=== PATIENT | female | born 2000 | race Caucasian/White ===

== ENCOUNTER 2018-03-02 20:38 | Emergency (ER) | payer OTHER ==
[~2018-03-02] VITALS: Ht 172.7 cm; Wt 77.1 kg
[2018-03-02 23:09] LABS: BUN/Creatinine Ratio 14.8; Calcium 7.7 mg/dL (8.5-10.1)
[2018-03-02 23:11] LABS: Bilirubin, Total 0.4 mg/dL (0.2-1.0); Total Protein 6.6 g/dL (6.4-8.2)
[2018-03-02 23:12] LABS: Urine Bacteria FEW /hpf (None Seen); Urine Blood Negative /uL (Negative); Urine Specific Gravity 1.011 (1.001-1.035); Urine WBC 3 /hpf (0 - 5)
[2018-03-02 23:13] LABS: Basophils # (auto) 0 uL; Basophils % (auto) 0.4 % (0.0-2.0); Eosinophils # (auto) 0 uL; Eosinophils % (auto) 0.3 % (0.0-7.0); Hematocrit 39.7 % (36.0-46.0); Hemoglobin 13.3 g/dL (12.2-16.2); Lymphocytes # (auto) 1.4 uL; Lymphocytes % (auto) 21.9 % (10.0-50.0); Mean Corpuscular Hemoglobin 28.9 pg (28.0-32.0); Mean Corpuscular Hgb Conc. 33.5 g/dL (32.0-36.0); Mean Corpuscular Volume 86.2 fL (80.0-100.0); Monocytes # (auto) 0.7 uL; Monocytes % (auto) 10.6 % (0.0-12.0); Neutrophils # (auto) 4.4 uL; Neutrophils % (auto) 66.8 % (37.0-80.0); Nucleated Red Blood Cells % 0.1 %; Platelet Count (auto) 250 10^3/uL (140-450); Red Cell Distribution Width 13.8 % (11.8-14.3); White Blood Cell 6.6 10^3/uL (4.4-10.8)
[2018-03-03] MEDS ORDERED: cefTRIAXone 1GM/10ml IVPUSH 10 ML IV ONE (00:45)
[2018-03-03] MEDS ORDERED: SODIUM CHLORIDE 0.9% 1,000 ML IV ONE (00:45)
[2018-03-03] MEDS ORDERED: ACETAMINOPHEN 500 MG TAB PO ONE (01:30)
[2018-03-03 03:25] VITALS: BP 108/80
== END 2018-03-03 03:29 | disposition home or self-care (01) ==
LOC: EDBD 20:38 → ER 20:38
DX: E10.10 Type 1 diabetes mellitus with ketoacidosis without coma (principal); E78.5 Hyperlipidemia, unspecified; Z88.1 Allergy status to other antibiotic agents; Z88.8 Allergy status to other drugs, medicaments and biological substances
CPT/HCPCS: 36415; 71045; 80053; 81001; 82010; 82962; 85025; 96361; 96374; 99285; J7030

== ENCOUNTER 2020-10-25 06:19 | Inpatient (IN) | payer OTHER, BC ==
[~2020-10-25] VITALS: Ht 172.7 cm; Wt 94.6 kg
[2020-10-25] MEDS ORDERED: SODIUM CHLORIDE 0.9% 1,000 ML IV ONE (07:30)
[2020-10-25] MEDS ORDERED: SODIUM CHLORIDE 0.9% 2,000 ML IV ONE (08:00)
[2020-10-25] MEDS ORDERED: SODIUM BICARBONATE 8.4 % INJ 50ML VIAL IV ONE ×3 (08:00→22:00)
[2020-10-25] MEDS ORDERED: DEXTROSE (50%) 50ML SYRG IV PRN ×2 (08:00→12:45)
[2020-10-25 08:21] LABS: Hematocrit 47.6 % (36.0-46.0); Hemoglobin 13.9 g/dL (12.2-16.2); Mean Corpuscular Hemoglobin 29.2 pg (28.0-32.0); Mean Corpuscular Hgb Conc. 29.2 g/dL (32.0-36.0); Mean Corpuscular Volume 99.9 fL (80.0-100.0); Red Blood Cells 4.76 10^6/uL (4.0-5.20); Red Cell Distribution Width 15.5 % (11.8-14.3); White Blood Cell 27.1 10^3/uL (4.4-10.8)
[2020-10-25 08:25] LABS: Basophils % (manual) 0 (0.0-2.0); Blast Cells 0; Eosinophils % (manual) 0 (0-7); Metamyelocytes % 0; Promyelocytes % 0; Reactive Lymphocytes 0
[2020-10-25] MEDS ORDERED: InsuLIN REG 1unit/0.01ml Soln (100units/ml) IV ONE (08:30)
[2020-10-25 08:32] LABS: Albumin 3.2 g/dL (3.4-5.0); Potassium 5.1 mmol/L (3.5-5.1)
[2020-10-25 08:34] LABS: Bilirubin, Total 0.4 mg/dL (0.2-1.0)
[2020-10-25 08:55] LABS: Urine Amorphous Crystal FEW /hpf (None Seen); Urine Bacteria NONE SEEN /hpf (None Seen); Urine Blood Negative /uL (Negative); Urine Specific Gravity 1.018 (1.001-1.035); Urine WBC 1 /hpf (0 - 5)
[2020-10-25] MEDS: InsuLIN R (HUMAN) 100 UNITS in SODIUM CHL 0.9% 99 ML IV SCH (09:02)
[2020-10-25] MEDS: ACCU-CHEK COMFORT CURVE STRIP VI SCH ×10 (09:03→22:32)
[2020-10-25 09:09] LABS: BUN/Creatinine Ratio 11.7
[2020-10-25] MEDS: SODIUM CHLORIDE 0.9% 1,000 ML IV SCH ×4 (09:20→14:49)
[2020-10-25 10:12] LABS: Phosphorus 5.4 mg/dL (2.5-4.90)
[2020-10-25] MEDS ORDERED: cefTRIAXone 1GM/50ML D5W 50 ML IV ONE (10:45)
[2020-10-25] MEDS: POTASSIUM CHLORIDE 20 MEQ in D5W 5% 1,000 ML IV SCH (10:52)
[2020-10-25] MEDS ORDERED: SUCCINYLCHOLINE CHLORIDE 20 MG/ML 10ML VIAL IV ONE ×2 (11:24→11:30)
[2020-10-25] MEDS ORDERED: ETOMIDATE (2MG/ML) 20ML VIAL IV ONE ×2 (11:24→11:30)
[2020-10-25] MEDS ORDERED: MIDAZOLAM DRIP 50 mg/50mL 50 ML IV ONE (11:25)
[2020-10-25 11:37] LABS: Band Neutrophils % (manual) 7; Lymphocytes % (manual) 20 (10.0-50.0); Monocytes % (manual) 5 (0-12); Myelocytes % 3
[2020-10-25] MEDS: MIDAZOLAM DRIP 50 mg/50mL 50 ML IV SCH (11:37)
[2020-10-25] MEDS: PROPOFOL 100 ML IV SCH (11:51)
[2020-10-25] MEDS ORDERED: INSULIN LANTUS (GLARGINE) 1 /0.01ml (100units/ml) SC ONE (12:45)
[2020-10-25] MEDS ORDERED: SODIUM CHLORIDE 0.9% 1,000 ML IV SCH ×4 (13:00→18:45)
[2020-10-25 13:08] LABS: Amylase 28 U/L (25-115); Lipase 134 U/L (73-393)
[2020-10-25] MEDS: FAMOTIDINE (10MG/ML) 2ML VL IV SCH (13:24)
[2020-10-25] MEDS ORDERED: NITROGLYCERIN 0.4 MG SL TAB SL PRN (14:00)
[2020-10-25] MEDS ORDERED: MORPHINE SULFATE INJECTION 2 MG/ML SYRG IV PRN (14:00)
[2020-10-25 14:44] VITALS: BP 151/92
[2020-10-25 14:45] LABS: Alcohol, Urine < 3.0 mg/dL (0-10); Amphetamine Screen, Urine NEGATIVE (NEGATIVE); Barbiturate Scree,Urine NEGATIVE (NEGATIVE); Benzodiazephine Screen, Urine NEGATIVE (NEGATIVE); Cannabinoid Screen, Urine NEGATIVE (NEGATIVE); Cocaine Screen, Urine NEGATIVE (NEGATIVE); Opiate Scree,Urine NEGATIVE (NEGATIVE); Phencyclidine Screen, Urine NEGATIVE (NEGATIVE)
[2020-10-25 15:26] LABS: Calcium 6.8 mg/dL (8.5-10.1)
[2020-10-25 16:31] LABS: Potassium 5.6 mmol/L (3.5-5.1)
[2020-10-25 18:30] VITALS: BP 138/72
[2020-10-25] MEDS ORDERED: ACETAMINOPHEN 650 mg PER 20.3 mL UD GT ONE (18:30)
[2020-10-25] MEDS ORDERED: FUROSEMIDE 40 MG/4 ML VIAL IV ONE (19:00)
[2020-10-25 19:12] LABS: BUN/Creatinine Ratio 9.4; Calcium 6.9 mg/dL (8.5-10.1); Potassium 4.4 mmol/L (3.5-5.1)
[2020-10-25] MEDS: SODIUM BICARB 50ML SYR 50 ML in SODIUM CHLORIDE 0.9% 1,000 ML IV SCH (19:44)
[2020-10-25] MEDS ORDERED: LACTATED RINGER'S 1,000 ML IV ONE (21:00)
[2020-10-25] MEDS ORDERED: SODIUM BICARBONATE 8.4% INJ 50ML SYRINGE ONE (21:50)
[2020-10-25 22:08] VITALS: BP 137/80
[2020-10-26] MEDS: ACCU-CHEK COMFORT CURVE STRIP VI SCH ×14 (00:17→20:16)
[2020-10-26] MEDS: InsuLIN R (HUMAN) 100 UNITS in SODIUM CHL 0.9% 99 ML IV SCH ×3 (00:17→04:00)
[2020-10-26] MEDS: FAMOTIDINE (10MG/ML) 2ML VL IV SCH ×2 (00:17→13:22)
[2020-10-26 01:16] LABS: Calcium 7.5 mg/dL (8.5-10.1); Potassium 3.5 mmol/L (3.5-5.1)
[2020-10-26 01:23] LABS: BUN/Creatinine Ratio 7.8
[2020-10-26 03:17] VITALS: BP 158/96
[2020-10-26] MEDS ORDERED: ACETAMINOPHEN 650 mg PER 20.3 mL UD GT ONE (04:00)
[2020-10-26] MEDS ORDERED: SODIUM BICARBONATE 8.4% INJ 50ML SYRINGE ONE (05:24)
[2020-10-26] MEDS: SODIUM BICARB 50ML SYR 50 ML in SODIUM CHLORIDE 0.9% 1,000 ML IV SCH ×2 (05:31→16:28)
[2020-10-26 06:00] VITALS: BP 146/81
[2020-10-26] MEDS: POTASSIUM CHLORIDE 20 MEQ in D5W 5% 1,000 ML IV SCH (06:04)
[2020-10-26 06:29] LABS: Basophils # (auto) 0 10 ^3/uL (0-0.2); Basophils % (auto) 0.2 % (0.0-2.0); Eosinophils # (auto) 0 10 ^3/uL (0-0.8); Eosinophils % (auto) 0.1 % (0.0-7.0); Hematocrit 35.6 % (36.0-46.0); Hemoglobin 11.7 g/dL (12.2-16.2); Lymphocytes # (auto) 1.1 10 ^3/uL (0.4-5.4); Lymphocytes % (auto) 8.6 % (10.0-50.0); Mean Corpuscular Hemoglobin 29.6 pg (28.0-32.0); Mean Corpuscular Hgb Conc. 32.8 g/dL (32.0-36.0); Monocytes # (auto) 1.2 10 ^3/uL (0-1.3); Monocytes % (auto) 9.7 % (0.0-12.0); Neutrophils # (auto) 10.3 10 ^3/uL (1.6-8.6); Neutrophils % (auto) 81.4 % (37.0-80.0); Nucleated Red Blood Cells % 0.2 %; Red Blood Cells 3.96 10^6/uL (4.0-5.20); Red Cell Distribution Width 14.2 % (11.8-14.3); White Blood Cell 12.7 10^3/uL (4.4-10.8)
[2020-10-26 06:53] LABS: Potassium 3.3 mmol/L (3.5-5.1)
[2020-10-26 07:00] LABS: Albumin 2.3 g/dL (3.4-5.0); BUN/Creatinine Ratio 5.6; Bilirubin, Total 0.3 mg/dL (0.2-1.0); Calcium 7.5 mg/dL (8.5-10.1); Total Protein 6.2 g/dL (6.4-8.2)
[2020-10-26] MEDS: cefTRIAXone 1GM/50ML D5W 50 ML IV SCH (08:40)
[2020-10-26] MEDS ORDERED: INSULIN LANTUS (GLARGINE) 1 /0.01ml (100units/ml) SC SCH (10:00)
[2020-10-26] MEDS: MIDAZOLAM DRIP 50 mg/50mL 50 ML IV SCH (11:30)
[2020-10-26] MEDS: PROPOFOL 100 ML IV SCH ×3 (12:00→13:35)
[2020-10-26] MEDS: LABETALOL HCL 5 MG/ML 4ML SYRINGE IV PRN (14:41)
[2020-10-26] MEDS ORDERED: SODIUM BICARBONATE 8.4 % INJ 50ML VIAL IV ONE (15:18)
[2020-10-26 18:38] LABS: BUN/Creatinine Ratio 5.5; Calcium 7.6 mg/dL (8.5-10.1)
[2020-10-26 18:57] LABS: Potassium 2.8 mmol/L (3.5-5.1)
[2020-10-26 19:00] VITALS: BP 133/83
[2020-10-26] MEDS: LACTATED RINGER'S 1,000 ML IV SCH (19:30)
[2020-10-26] MEDS ORDERED: DEXTROSE (50%) 50ML SYRG IV PRN (19:30)
[2020-10-26] MEDS: POTASSIUM CHL 20MEQ/100ML 100 ML IV SCH ×3 (19:30→23:30)
[2020-10-26] MEDS: InsuLIN REG 1unit/0.01ml Soln (100units/ml) SC SCH (20:00)
[2020-10-26] MEDS: ACETAMINOPHEN 650 mg PER 20.3 mL UD GT PRN (21:30)
[2020-10-27] VITALS (9 sets, daily range): BP systolic 115–169; BP diastolic 75–110
[2020-10-27] MEDS: FAMOTIDINE (10MG/ML) 2ML VL IV SCH ×2 (01:11→15:00)
[2020-10-27] MEDS: SODIUM BICARB 50ML SYR 50 ML in SODIUM CHLORIDE 0.9% 1,000 ML IV SCH ×3 (01:50→15:00)
[2020-10-27] MEDS: ACETAMINOPHEN 650 mg PER 20.3 mL UD GT PRN ×2 (03:35→20:08)
[2020-10-27] MEDS: ACCU-CHEK COMFORT CURVE STRIP VI SCH ×5 (03:36→19:43)
[2020-10-27] MEDS: LACTATED RINGER'S 1,000 ML IV SCH ×3 (03:36→19:44)
[2020-10-27] MEDS: InsuLIN REG 1unit/0.01ml Soln (100units/ml) SC SCH ×5 (03:53→20:20)
[2020-10-27] MEDS ORDERED: SODIUM BICARBONATE 8.4% INJ 50ML SYRINGE ONE (03:56)
[2020-10-27] MEDS: PROPOFOL 100 ML IV SCH (06:00)
[2020-10-27] MEDS ORDERED: INSULIN LANTUS (GLARGINE) 1 /0.01ml (100units/ml) SC SCH (09:30)
[2020-10-27] MEDS: cefTRIAXone 1GM/50ML D5W 50 ML IV SCH (09:36)
[2020-10-27 11:25] LABS: Basophils # (auto) 0 10 ^3/uL (0-0.2); Basophils % (auto) 0.3 % (0.0-2.0); Eosinophils # (auto) 0 10 ^3/uL (0-0.8); Eosinophils % (auto) 0.5 % (0.0-7.0); Hematocrit 31.5 % (36.0-46.0); Hemoglobin 10.7 g/dL (12.2-16.2); Lymphocytes # (auto) 1.6 10 ^3/uL (0.4-5.4); Lymphocytes % (auto) 19.7 % (10.0-50.0); Mean Corpuscular Hemoglobin 30.7 pg (28.0-32.0); Mean Corpuscular Hgb Conc. 34.1 g/dL (32.0-36.0); Mean Corpuscular Volume 89.8 fL (80.0-100.0); Monocytes # (auto) 0.7 10 ^3/uL (0-1.3); Monocytes % (auto) 9.3 % (0.0-12.0); Neutrophils # (auto) 5.6 10 ^3/uL (1.6-8.6); Neutrophils % (auto) 70.2 % (37.0-80.0); Nucleated Red Blood Cells % 0.1 %; Red Cell Distribution Width 14.7 % (11.8-14.3)
[2020-10-27] MEDS: MIDAZOLAM DRIP 50 mg/50mL 50 ML IV SCH (11:30)
[2020-10-27 11:36] LABS: Calcium 7.9 mg/dL (8.5-10.1)
[2020-10-27 11:39] LABS: BUN/Creatinine Ratio 5.5; Bilirubin, Total 0.2 mg/dL (0.2-1.0); Total Protein 5.8 g/dL (6.4-8.2)
[2020-10-27 11:58] LABS: Potassium 2.8 mmol/L (3.5-5.1)
[2020-10-27 12:51] LABS: Calcium 7.9 mg/dL (8.5-10.1)
[2020-10-27 12:55] LABS: BUN/Creatinine Ratio 5.3; Bilirubin, Total 0.2 mg/dL (0.2-1.0)
[2020-10-27] MEDS ORDERED: DEXTROSE (50%) 50ML SYRG IV PRN (13:45)
[2020-10-27] MEDS: INSULIN LANTUS (GLARGINE) 1 /0.01ml (100units/ml) SC SCH (15:17)
[2020-10-27] MEDS ORDERED: POTASSIUM EFFERVESENT TAB 25 MEQ GT ONE (19:15)
[2020-10-28] VITALS (74 sets, daily range): BP systolic 140–215; BP diastolic 49–113
[2020-10-28] MEDS: ACCU-CHEK COMFORT CURVE STRIP VI SCH ×6 (00:06→20:00)
[2020-10-28] MEDS: InsuLIN REG 1unit/0.01ml Soln (100units/ml) SC SCH ×6 (00:14→20:00)
[2020-10-28] MEDS: FAMOTIDINE (10MG/ML) 2ML VL IV SCH ×3 (01:00→23:14)
[2020-10-28] MEDS: PROPOFOL 100 ML IV SCH ×2 (01:47→23:15)
[2020-10-28] MEDS ORDERED: SODIUM BICARBONATE 8.4% INJ 50ML SYRINGE ONE ×2 (02:18→02:23)
[2020-10-28] MEDS: LABETALOL HCL 5 MG/ML 4ML SYRINGE IV PRN (02:30)
[2020-10-28] MEDS: LACTATED RINGER'S 1,000 ML IV SCH ×3 (02:55→19:30)
[2020-10-28 04:36] LABS: Potassium 3.6 mmol/L (3.5-5.1)
[2020-10-28 04:44] LABS: Albumin 1.7 g/dL (3.4-5.0); BUN/Creatinine Ratio 6.3; Bilirubin, Total 0.4 mg/dL (0.2-1.0); Calcium 8.2 mg/dL (8.5-10.1); Total Protein 5.7 g/dL (6.4-8.2)
[2020-10-28] MEDS: MORPHINE SULFATE INJECTION 2 MG/ML SYRG IV PRN (06:32)
[2020-10-28 06:46] LABS: Basophils # (auto) 0.1 10 ^3/uL (0-0.2); Nucleated Red Blood Cells % 0.1 %
[2020-10-28 06:50] LABS: Basophils % (auto) 0.7 % (0.0-2.0); Eosinophils # (auto) 0.2 10 ^3/uL (0-0.8); Eosinophils % (auto) 1.9 % (0.0-7.0); Hematocrit 34.2 % (36.0-46.0); Lymphocytes % (auto) 23.3 % (10.0-50.0); Mean Corpuscular Hgb Conc. 32.1 g/dL (32.0-36.0); Mean Corpuscular Volume 93.5 fL (80.0-100.0); Monocytes # (auto) 0.8 10 ^3/uL (0-1.3); Monocytes % (auto) 9.6 % (0.0-12.0); Neutrophils # (auto) 5.6 10 ^3/uL (1.6-8.6); Neutrophils % (auto) 64.5 % (37.0-80.0); Red Blood Cells 3.66 10^6/uL (4.0-5.20); Red Cell Distribution Width 15.4 % (11.8-14.3); White Blood Cell 8.7 10^3/uL (4.4-10.8)
[2020-10-28] MEDS: INSULIN LANTUS (GLARGINE) 1 /0.01ml (100units/ml) SC SCH (09:27)
[2020-10-28] MEDS: cefTRIAXone 1GM/50ML D5W 50 ML IV SCH (09:27)
[2020-10-28] MEDS: hydrALAZINE HCL 20 MG/ML VL IV PRN ×2 (10:22→14:33)
[2020-10-28] MEDS: MIDAZOLAM DRIP 50 mg/50mL 50 ML IV SCH (11:30)
[2020-10-28] MEDS: SODIUM BICARB 50ML SYR 50 ML in SODIUM CHLORIDE 0.9% 1,000 ML IV SCH ×2 (12:44→23:13)
[2020-10-28] MEDS: ACETAMINOPHEN 650 mg PER 20.3 mL UD GT PRN (23:16)
[2020-10-29] VITALS (72 sets, daily range): BP systolic 112–172; BP diastolic 55–108
[2020-10-29] MEDS: InsuLIN REG 1unit/0.01ml Soln (100units/ml) SC SCH ×7 (00:08→23:53)
[2020-10-29] MEDS: ACCU-CHEK COMFORT CURVE STRIP VI SCH ×7 (00:14→23:53)
[2020-10-29] MEDS: PROPOFOL 100 ML IV SCH ×6 (02:28→23:28)
[2020-10-29] MEDS: LACTATED RINGER'S 1,000 ML IV SCH ×3 (03:30→21:40)
[2020-10-29 03:51] LABS: Basophils # (auto) 0 10 ^3/uL (0-0.2); Basophils % (auto) 0.5 % (0.0-2.0); Eosinophils # (auto) 0.3 10 ^3/uL (0-0.8); Eosinophils % (auto) 3.4 % (0.0-7.0); Hematocrit 33.1 % (36.0-46.0); Hemoglobin 10.8 g/dL (12.2-16.2); Lymphocytes # (auto) 1.6 10 ^3/uL (0.4-5.4); Lymphocytes % (auto) 17.2 % (10.0-50.0); Mean Corpuscular Hemoglobin 29.4 pg (28.0-32.0); Mean Corpuscular Hgb Conc. 32.6 g/dL (32.0-36.0); Mean Corpuscular Volume 90.1 fL (80.0-100.0); Monocytes # (auto) 0.9 10 ^3/uL (0-1.3); Monocytes % (auto) 10.4 % (0.0-12.0); Neutrophils # (auto) 6.2 10 ^3/uL (1.6-8.6); Neutrophils % (auto) 68.5 % (37.0-80.0); Red Blood Cells 3.67 10^6/uL (4.0-5.20); Red Cell Distribution Width 14.4 % (11.8-14.3)
[2020-10-29 04:11] LABS: Albumin 1.6 g/dL (3.4-5.0)
[2020-10-29 04:15] LABS: BUN/Creatinine Ratio 7.8; Bilirubin, Total 0.2 mg/dL (0.2-1.0); Total Protein 5.3 g/dL (6.4-8.2)
[2020-10-29] MEDS: cefTRIAXone 1GM/50ML D5W 50 ML IV SCH (08:51)
[2020-10-29] MEDS: SODIUM BICARB 50ML SYR 50 ML in SODIUM CHLORIDE 0.9% 1,000 ML IV SCH ×2 (08:51→17:45)
[2020-10-29] MEDS: INSULIN LANTUS (GLARGINE) 1 /0.01ml (100units/ml) SC SCH (09:02)
[2020-10-29] MEDS: MIDAZOLAM DRIP 50 mg/50mL 50 ML IV SCH (11:30)
[2020-10-29] MEDS: FAMOTIDINE (10MG/ML) 2ML VL IV SCH (12:16)
[2020-10-29] MEDS ORDERED: POTASSIUM CHLORIDE 40 MEQ, LIDOCAINE 1% (LOCAL ANESTH.) 4 ML in SODIUM CHL 0.9% 250 ML IV ONE (15:00)
[2020-10-29] MEDS: hydrALAZINE HCL 20 MG/ML VL IV PRN (15:43)
[2020-10-29] MEDS: ENALAPRILAT 1.25 MG/ML-1ML VIAL IV SCH ×2 (18:16→23:51)
[2020-10-29] MEDS: ACETAMINOPHEN 650 mg PER 20.3 mL UD GT PRN (21:43)
[2020-10-29] MEDS: MORPHINE SULFATE INJECTION 2 MG/ML SYRG IV PRN (21:45)
[2020-10-30] VITALS (86 sets, daily range): BP systolic 118–166; BP diastolic 57–102
[2020-10-30] MEDS: FAMOTIDINE (10MG/ML) 2ML VL IV SCH ×2 (00:45→12:21)
[2020-10-30 03:29] LABS: Basophils # (auto) 0 10 ^3/uL (0-0.2); Basophils % (auto) 0.3 % (0.0-2.0); Eosinophils # (auto) 0.3 10 ^3/uL (0-0.8); Eosinophils % (auto) 3.5 % (0.0-7.0); Hematocrit 33.7 % (36.0-46.0); Hemoglobin 11.3 g/dL (12.2-16.2); Lymphocytes # (auto) 1.5 10 ^3/uL (0.4-5.4); Lymphocytes % (auto) 18.4 % (10.0-50.0); Mean Corpuscular Hemoglobin 29.9 pg (28.0-32.0); Mean Corpuscular Hgb Conc. 33.6 g/dL (32.0-36.0); Mean Corpuscular Volume 88.8 fL (80.0-100.0); Monocytes % (auto) 12.4 % (0.0-12.0); Neutrophils # (auto) 5.5 10 ^3/uL (1.6-8.6); Neutrophils % (auto) 65.4 % (37.0-80.0); Nucleated Red Blood Cells % 0.1 %; Red Blood Cells 3.79 10^6/uL (4.0-5.20); Red Cell Distribution Width 14.4 % (11.8-14.3); White Blood Cell 8.4 10^3/uL (4.4-10.8)
[2020-10-30 03:48] LABS: Potassium 3.2 mmol/L (3.5-5.1)
[2020-10-30 03:55] LABS: Albumin 1.6 g/dL (3.4-5.0); BUN/Creatinine Ratio 10.1; Bilirubin, Total 0.2 mg/dL (0.2-1.0); Calcium 7.7 mg/dL (8.5-10.1); Total Protein 5.8 g/dL (6.4-8.2)
[2020-10-30] MEDS: PROPOFOL 100 ML IV SCH (04:13)
[2020-10-30] MEDS: InsuLIN REG 1unit/0.01ml Soln (100units/ml) SC SCH ×5 (04:15→20:30)
[2020-10-30] MEDS: ACCU-CHEK COMFORT CURVE STRIP VI SCH ×5 (04:16→20:19)
[2020-10-30] MEDS: SODIUM BICARB 50ML SYR 50 ML in SODIUM CHLORIDE 0.9% 1,000 ML IV SCH ×2 (04:18→14:45)
[2020-10-30] MEDS: ENALAPRILAT 1.25 MG/ML-1ML VIAL IV SCH ×3 (06:00→16:05)
[2020-10-30] MEDS: hydrALAZINE HCL 20 MG/ML VL IV PRN (06:44)
[2020-10-30] MEDS: LACTATED RINGER'S 1,000 ML IV SCH ×3 (08:45→20:15)
[2020-10-30] MEDS: cefTRIAXone 1GM/50ML D5W 50 ML IV SCH (08:48)
[2020-10-30] MEDS: INSULIN LANTUS (GLARGINE) 1 /0.01ml (100units/ml) SC SCH (10:04)
[2020-10-30] MEDS: MIDAZOLAM DRIP 50 mg/50mL 50 ML IV SCH (11:30)
[2020-10-30] MEDS ORDERED: POTASSIUM CHLORIDE 40 MEQ, LIDOCAINE 1% (LOCAL ANESTH.) 4 ML in SODIUM CHL 0.9% 250 ML IV ONE (14:15)
[2020-10-31] VITALS (98 sets, daily range): BP systolic 122–176; BP diastolic 67–109
[2020-10-31] MEDS: ACCU-CHEK COMFORT CURVE STRIP VI SCH ×7 (00:22→23:56)
[2020-10-31] MEDS: InsuLIN REG 1unit/0.01ml Soln (100units/ml) SC SCH ×7 (00:24→23:56)
[2020-10-31] MEDS: FAMOTIDINE (10MG/ML) 2ML VL IV SCH ×2 (00:32→13:48)
[2020-10-31] MEDS: LACTATED RINGER'S 1,000 ML IV SCH ×3 (04:39→23:41)
[2020-10-31] MEDS: ENALAPRILAT 1.25 MG/ML-1ML VIAL IV SCH ×3 (07:00→11:26)
[2020-10-31] MEDS: SODIUM BICARB 50ML SYR 50 ML in SODIUM CHLORIDE 0.9% 1,000 ML IV SCH ×3 (07:38→21:53)
[2020-10-31] MEDS: PROPOFOL 100 ML IV SCH ×7 (08:00→23:47)
[2020-10-31] MEDS: cefTRIAXone 1GM/50ML D5W 50 ML IV SCH (08:44)
[2020-10-31] MEDS: INSULIN LANTUS (GLARGINE) 1 /0.01ml (100units/ml) SC SCH (10:00)
[2020-10-31] MEDS: MIDAZOLAM DRIP 50 mg/50mL 50 ML IV SCH ×3 (11:13→23:48)
[2020-10-31] MEDS: hydrALAZINE HCL 20 MG/ML VL IV PRN (17:43)
[2020-10-31 21:56] LABS: Basophils # (auto) 0 10 ^3/uL (0-0.2); Basophils % (auto) 0.3 % (0.0-2.0); Eosinophils # (auto) 0.6 10 ^3/uL (0-0.8); Eosinophils % (auto) 7.3 % (0.0-7.0); Hematocrit 27.6 % (36.0-46.0); Hemoglobin 9.6 g/dL (12.2-16.2); Lymphocytes # (auto) 1.5 10 ^3/uL (0.4-5.4); Lymphocytes % (auto) 16.6 % (10.0-50.0); Mean Corpuscular Hemoglobin 30.9 pg (28.0-32.0); Mean Corpuscular Hgb Conc. 34.9 g/dL (32.0-36.0); Mean Corpuscular Volume 88.6 fL (80.0-100.0); Monocytes # (auto) 0.9 10 ^3/uL (0-1.3); Monocytes % (auto) 10.3 % (0.0-12.0); Neutrophils # (auto) 5.8 10 ^3/uL (1.6-8.6); Neutrophils % (auto) 65.5 % (37.0-80.0); Red Blood Cells 3.12 10^6/uL (4.0-5.20); White Blood Cell 8.9 10^3/uL (4.4-10.8)
[2020-10-31 22:19] LABS: Albumin 1.3 g/dL (3.4-5.0); Calcium 7.8 mg/dL (8.5-10.1)
[2020-10-31 22:23] LABS: BUN/Creatinine Ratio 10.9; Bilirubin, Total 0.2 mg/dL (0.2-1.0)
[2020-10-31 22:26] LABS: Potassium 2.8 mmol/L (3.5-5.1)
[2020-11-01] VITALS (79 sets, daily range): BP systolic 127–176; BP diastolic 73–104
[2020-11-01] MEDS: FAMOTIDINE (10MG/ML) 2ML VL IV SCH ×2 (00:52→13:47)
[2020-11-01] MEDS ORDERED: POTASSIUM CHL 20MEQ/100ML 200 ML IV ONE (00:58)
[2020-11-01] MEDS: POTASSIUM CHL 20MEQ/100ML 100 ML IV SCH ×3 (01:00→04:54)
[2020-11-01] MEDS ORDERED: POTASSIUM CHL 20MEQ/100ML 100 ML IV ONE (03:12)
[2020-11-01] MEDS: InsuLIN REG 1unit/0.01ml Soln (100units/ml) SC SCH ×5 (04:00→21:05)
[2020-11-01] MEDS: ACCU-CHEK COMFORT CURVE STRIP VI SCH ×5 (04:19→20:06)
[2020-11-01] MEDS: MIDAZOLAM DRIP 50 mg/50mL 50 ML IV SCH ×2 (04:20→16:20)
[2020-11-01] MEDS: PROPOFOL 100 ML IV SCH ×6 (04:20→17:45)
[2020-11-01] MEDS: LACTATED RINGER'S 1,000 ML IV SCH ×2 (08:22→11:51)
[2020-11-01] MEDS: SODIUM BICARB 50ML SYR 50 ML in SODIUM CHLORIDE 0.9% 1,000 ML IV SCH (08:25)
[2020-11-01] MEDS: cefTRIAXone 1GM/50ML D5W 50 ML IV SCH (08:40)
[2020-11-01 09:17] LABS: Basophils # (auto) 0 10 ^3/uL (0-0.2); Basophils % (auto) 0.4 % (0.0-2.0); Eosinophils # (auto) 0.7 10 ^3/uL (0-0.8); Eosinophils % (auto) 7.9 % (0.0-7.0); Hemoglobin 9.9 g/dL (12.2-16.2); Lymphocytes # (auto) 1.7 10 ^3/uL (0.4-5.4); Lymphocytes % (auto) 20.8 % (10.0-50.0); Mean Corpuscular Hemoglobin 29.7 pg (28.0-32.0); Mean Corpuscular Hgb Conc. 33.1 g/dL (32.0-36.0); Mean Corpuscular Volume 89.8 fL (80.0-100.0); Monocytes # (auto) 0.8 10 ^3/uL (0-1.3); Monocytes % (auto) 9.7 % (0.0-12.0); Neutrophils # (auto) 5.1 10 ^3/uL (1.6-8.6); Neutrophils % (auto) 61.2 % (37.0-80.0); Red Blood Cells 3.34 10^6/uL (4.0-5.20); Red Cell Distribution Width 14.1 % (11.8-14.3); White Blood Cell 8.4 10^3/uL (4.4-10.8)
[2020-11-01 09:31] LABS: Albumin 1.5 g/dL (3.4-5.0); Calcium 7.8 mg/dL (8.5-10.1); Potassium 3.5 mmol/L (3.5-5.1)
[2020-11-01 09:36] LABS: Bilirubin, Total 0.2 mg/dL (0.2-1.0); Total Protein 5.3 g/dL (6.4-8.2)
[2020-11-01] MEDS: hydrALAZINE HCL 20 MG/ML VL IV PRN (09:36)
[2020-11-01] MEDS: INSULIN LANTUS (GLARGINE) 1 /0.01ml (100units/ml) SC SCH (09:48)
[2020-11-01] MEDS: LABETALOL HCL 5 MG/ML 4ML SYRINGE IV PRN ×3 (11:29→23:13)
[2020-11-01] MEDS ORDERED: FUROSEMIDE 20 MG/2 ML VIAL IV ONE (13:00)
[2020-11-01] MEDS ORDERED: METOPROLOL TARTRATE 25 MG TAB NG ONE (13:00)
[2020-11-01] MEDS: D5W/SOD CHL 0.45%/KCL 20MEQ 1,000 ML IV SCH ×2 (13:47→23:14)
[2020-11-01] MEDS ORDERED: FUROSEMIDE 20 MG/2 ML VIAL ONE (14:13)
[2020-11-01 15:48] LABS: BUN/Creatinine Ratio 11.2; Calcium 7.7 mg/dL (8.5-10.1); Potassium 3.5 mmol/L (3.5-5.1)
[2020-11-01] MEDS: METOPROLOL TARTRATE 25 MG TAB NG SCH ×2 (22:09→23:14)
[2020-11-02] VITALS (71 sets, daily range): BP systolic 115–186; BP diastolic 54–106
[2020-11-02] MEDS: ACCU-CHEK COMFORT CURVE STRIP VI SCH ×7 (00:33→23:42)
[2020-11-02] MEDS: FAMOTIDINE (10MG/ML) 2ML VL IV SCH ×2 (00:45→12:16)
[2020-11-02] MEDS: InsuLIN REG 1unit/0.01ml Soln (100units/ml) SC SCH ×7 (01:18→23:54)
[2020-11-02 04:15] LABS: Albumin 1.4 g/dL (3.4-5.0); Calcium 7.8 mg/dL (8.5-10.1); Potassium 3.5 mmol/L (3.5-5.1)
[2020-11-02 04:18] LABS: BUN/Creatinine Ratio 10.9
[2020-11-02 04:27] LABS: Bilirubin, Total 0.2 mg/dL (0.2-1.0); Total Protein 5.2 g/dL (6.4-8.2)
[2020-11-02 04:30] LABS: Basophils # (auto) 0 10 ^3/uL (0-0.2); Basophils % (auto) 0.3 % (0.0-2.0); Eosinophils # (auto) 0.7 10 ^3/uL (0-0.8); Eosinophils % (auto) 7.9 % (0.0-7.0); Hematocrit 28.8 % (36.0-46.0); Hemoglobin 9.9 g/dL (12.2-16.2); Lymphocytes # (auto) 1.6 10 ^3/uL (0.4-5.4); Lymphocytes % (auto) 19.4 % (10.0-50.0); Mean Corpuscular Hemoglobin 30.6 pg (28.0-32.0); Mean Corpuscular Hgb Conc. 34.5 g/dL (32.0-36.0); Mean Corpuscular Volume 88.8 fL (80.0-100.0); Monocytes % (auto) 12.2 % (0.0-12.0); Neutrophils # (auto) 4.9 10 ^3/uL (1.6-8.6); Neutrophils % (auto) 60.2 % (37.0-80.0); Nucleated Red Blood Cells % 0.1 %; Red Blood Cells 3.25 10^6/uL (4.0-5.20); Red Cell Distribution Width 13.9 % (11.8-14.3); White Blood Cell 8.2 10^3/uL (4.4-10.8)
[2020-11-02] MEDS: D5W/SOD CHL 0.45%/KCL 20MEQ 1,000 ML IV SCH ×2 (08:40→18:25)
[2020-11-02] MEDS: cefTRIAXone 1GM/50ML D5W 50 ML IV SCH (08:46)
[2020-11-02] MEDS: INSULIN LANTUS (GLARGINE) 1 /0.01ml (100units/ml) SC SCH (09:53)
[2020-11-02] MEDS: METOPROLOL TARTRATE 25 MG TAB NG SCH ×2 (09:54→21:39)
[2020-11-02] MEDS: LABETALOL HCL 5 MG/ML 4ML SYRINGE IV PRN (10:11)
[2020-11-02] MEDS: hydrALAZINE HCL 20 MG/ML VL IV PRN ×2 (16:12→23:35)
[2020-11-02] MEDS: PROPOFOL 100 ML IV SCH ×3 (16:50→21:29)
[2020-11-02] MEDS ORDERED: FLUCONAZOLE 200MG/100ML 100 ML IV ONE (18:00)
[2020-11-02] MEDS: ACETAMINOPHEN 650 mg PER 20.3 mL UD GT PRN (18:25)
[2020-11-03] VITALS (93 sets, daily range): BP systolic 125–194; BP diastolic 73–122
[2020-11-03] MEDS: FAMOTIDINE (10MG/ML) 2ML VL IV SCH ×2 (00:33→12:29)
[2020-11-03] MEDS: PROPOFOL 100 ML IV SCH ×5 (00:34→22:02)
[2020-11-03] MEDS: LABETALOL HCL 5 MG/ML 4ML SYRINGE IV PRN ×2 (00:41→15:15)
[2020-11-03] MEDS: ACCU-CHEK COMFORT CURVE STRIP VI SCH ×5 (03:57→20:47)
[2020-11-03] MEDS: InsuLIN REG 1unit/0.01ml Soln (100units/ml) SC SCH ×5 (04:01→20:00)
[2020-11-03] MEDS: D5W/SOD CHL 0.45%/KCL 20MEQ 1,000 ML IV SCH (04:40)
[2020-11-03] MEDS: INSULIN LANTUS (GLARGINE) 1 /0.01ml (100units/ml) SC SCH (09:43)
[2020-11-03] MEDS: cefTRIAXone 1GM/50ML D5W 50 ML IV SCH (09:53)
[2020-11-03] MEDS: FLUCONAZOLE 200MG/100ML 100 ML IV SCH (10:24)
[2020-11-03] MEDS: MIDAZOLAM DRIP 50 mg/50mL 50 ML IV SCH (10:25)
[2020-11-03] MEDS: METOPROLOL TARTRATE 25 MG TAB NG SCH ×2 (10:25→21:55)
[2020-11-03] MEDS ORDERED: EPINEPHrine HCL 0.5 ML NEB ONE ×2 (14:48→14:58)
[2020-11-03] MEDS ORDERED: DexAMETHasone SOD PHOS 10MG/1ML VIAL INJ IV ONE (15:00)
[2020-11-03] MEDS ORDERED: ETOMIDATE (2MG/ML) 20ML VIAL IV ONE (15:08)
[2020-11-03] MEDS ORDERED: SUCCINYLCHOLINE CHLORIDE 20 MG/ML 10ML VIAL IV ONE (15:09)
[2020-11-03] MEDS ORDERED: FUROSEMIDE 40 MG/4 ML VIAL IV ONE (16:00)
[2020-11-03] MEDS: hydrALAZINE HCL 20 MG/ML VL IV PRN (20:47)
[2020-11-04] VITALS (99 sets, daily range): BP systolic 104–166; BP diastolic 44–98
[2020-11-04] MEDS: ACCU-CHEK COMFORT CURVE STRIP VI SCH ×6 (00:07→21:00)
[2020-11-04] MEDS: InsuLIN REG 1unit/0.01ml Soln (100units/ml) SC SCH ×6 (00:07→20:54)
[2020-11-04] MEDS: FAMOTIDINE (10MG/ML) 2ML VL IV SCH ×2 (00:09→12:26)
[2020-11-04] MEDS: MORPHINE SULFATE INJECTION 2 MG/ML SYRG IV PRN (01:01)
[2020-11-04] MEDS: PROPOFOL 100 ML IV SCH (01:52)
[2020-11-04] MEDS: LABETALOL HCL 5 MG/ML 4ML SYRINGE IV PRN (01:53)
[2020-11-04] MEDS: cefTRIAXone 1GM/50ML D5W 50 ML IV SCH (08:51)
[2020-11-04] MEDS: INSULIN LANTUS (GLARGINE) 1 /0.01ml (100units/ml) SC SCH (10:04)
[2020-11-04] MEDS: METOPROLOL TARTRATE 25 MG TAB NG SCH ×3 (10:04→21:42)
[2020-11-04] MEDS: MIDAZOLAM DRIP 50 mg/50mL 50 ML IV SCH (10:05)
[2020-11-04] MEDS: FLUCONAZOLE 200MG/100ML 100 ML IV SCH (10:05)
[2020-11-04 10:08] LABS: Calcium 8.1 mg/dL (8.5-10.1)
[2020-11-04 10:12] LABS: BUN/Creatinine Ratio 11.5
[2020-11-04 11:04] LABS: Basophils # (auto) 0 10 ^3/uL (0-0.2); Basophils % (auto) 0.3 % (0.0-2.0); Eosinophils # (auto) 0.1 10 ^3/uL (0-0.8); Eosinophils % (auto) 0.5 % (0.0-7.0); Hematocrit 28.5 % (36.0-46.0); Hemoglobin 9.5 g/dL (12.2-16.2); Lymphocytes # (auto) 1.9 10 ^3/uL (0.4-5.4); Lymphocytes % (auto) 18.4 % (10.0-50.0); Mean Corpuscular Hemoglobin 29.6 pg (28.0-32.0); Mean Corpuscular Hgb Conc. 33.2 g/dL (32.0-36.0); Mean Corpuscular Volume 89.3 fL (80.0-100.0); Monocytes # (auto) 1.2 10 ^3/uL (0-1.3); Monocytes % (auto) 11.3 % (0.0-12.0); Neutrophils # (auto) 7.3 10 ^3/uL (1.6-8.6); Neutrophils % (auto) 69.5 % (37.0-80.0); Nucleated Red Blood Cells % 0.1 %; Red Blood Cells 3.19 10^6/uL (4.0-5.20); Red Cell Distribution Width 13.9 % (11.8-14.3); White Blood Cell 10.5 10^3/uL (4.4-10.8)
[2020-11-04] MEDS ORDERED: Glucerna 1.2 Cal 1Liter BOTTLE GT SCH (11:15)
[2020-11-04] MEDS ORDERED: FUROSEMIDE 40 MG/4 ML VIAL IV ONE (12:00)
[2020-11-04] MEDS: ACETAMINOPHEN 650 mg PER 20.3 mL UD GT PRN (17:42)
[2020-11-05] VITALS (89 sets, daily range): BP systolic 121–190; BP diastolic 67–154
[2020-11-05] MEDS: InsuLIN REG 1unit/0.01ml Soln (100units/ml) SC SCH ×6 (00:06→20:00)
[2020-11-05] MEDS: FAMOTIDINE (10MG/ML) 2ML VL IV SCH ×2 (00:07→13:00)
[2020-11-05] MEDS: ACCU-CHEK COMFORT CURVE STRIP VI SCH ×6 (00:07→20:00)
[2020-11-05] MEDS: ACETAMINOPHEN 650 mg PER 20.3 mL UD GT PRN (06:26)
[2020-11-05] MEDS: cefTRIAXone 1GM/50ML D5W 50 ML IV SCH (09:30)
[2020-11-05] MEDS: INSULIN LANTUS (GLARGINE) 1 /0.01ml (100units/ml) SC SCH (10:17)
[2020-11-05] MEDS: FLUCONAZOLE 200MG/100ML 100 ML IV SCH (10:43)
[2020-11-05] MEDS: hydrALAZINE HCL 20 MG/ML VL IV PRN ×2 (11:52→18:25)
[2020-11-05] MEDS ORDERED: PROPOFOL 100 ML IV ONE (12:39)
[2020-11-05] MEDS: PROPOFOL 100 ML IV SCH ×3 (13:01→19:02)
[2020-11-05] MEDS: MORPHINE SULFATE INJECTION 2 MG/ML SYRG IV PRN (15:12)
[2020-11-05] MEDS: LABETALOL HCL 5 MG/ML 4ML SYRINGE IV PRN (16:22)
[2020-11-05] MEDS: fentaNYL Drip 2500mCg/250mlNS 250 ML IV SCH (16:29)
[2020-11-05] MEDS: METOPROLOL TARTRATE 25 MG TAB NG SCH (22:00)
[2020-11-06] VITALS (76 sets, daily range): BP systolic 116–194; BP diastolic 66–104
[2020-11-06] MEDS: FAMOTIDINE (10MG/ML) 2ML VL IV SCH ×3 (00:45→23:31)
[2020-11-06] MEDS: PROPOFOL 100 ML IV SCH ×6 (03:04→23:59)
[2020-11-06] MEDS: InsuLIN REG 1unit/0.01ml Soln (100units/ml) SC SCH ×5 (04:00→23:30)
[2020-11-06] MEDS: ACCU-CHEK COMFORT CURVE STRIP VI SCH ×5 (04:00→23:30)
[2020-11-06 05:02] LABS: Basophils # (auto) 0 10 ^3/uL (0-0.2); Basophils % (auto) 0.3 % (0.0-2.0); Eosinophils # (auto) 0.4 10 ^3/uL (0-0.8); Lymphocytes # (auto) 2.3 10 ^3/uL (0.4-5.4); Monocytes # (auto) 0.8 10 ^3/uL (0-1.3); Red Cell Distribution Width 13.8 % (11.8-14.3)
[2020-11-06 05:04] LABS: Eosinophils % (auto) 4.7 % (0.0-7.0); Hematocrit 24.4 % (36.0-46.0); Hemoglobin 8.2 g/dL (12.2-16.2); Lymphocytes % (auto) 25.5 % (10.0-50.0); Mean Corpuscular Hemoglobin 30.6 pg (28.0-32.0); Mean Corpuscular Hgb Conc. 33.8 g/dL (32.0-36.0); Mean Corpuscular Volume 90.5 fL (80.0-100.0); Monocytes % (auto) 9.3 % (0.0-12.0); Neutrophils # (auto) 5.4 10 ^3/uL (1.6-8.6); Neutrophils % (auto) 60.2 % (37.0-80.0)
[2020-11-06 05:13] LABS: Potassium 3.1 mmol/L (3.5-5.1)
[2020-11-06 05:19] LABS: Albumin 1.3 g/dL (3.4-5.0); BUN/Creatinine Ratio 11.1; Bilirubin, Total 0.3 mg/dL (0.2-1.0); Calcium 7.8 mg/dL (8.5-10.1); Total Protein 5.4 g/dL (6.4-8.2)
[2020-11-06] MEDS ORDERED: DEXTROSE (50%) 50ML SYRG IV PRN (08:45)
[2020-11-06] MEDS: cefTRIAXone 1GM/50ML D5W 50 ML IV SCH (09:03)
[2020-11-06] MEDS: POTASSIUM CHL 20MEQ/100ML 100 ML IV SCH ×2 (09:39→10:36)
[2020-11-06] MEDS: FLUCONAZOLE 200MG/100ML 100 ML IV SCH (10:12)
[2020-11-06] MEDS: METOPROLOL TARTRATE 25 MG TAB NG SCH ×2 (10:12→21:46)
[2020-11-06] MEDS: INSULIN LANTUS (GLARGINE) 1 /0.01ml (100units/ml) SC SCH (10:27)
[2020-11-06 10:29] LABS: Basophils # (auto) 0 10 ^3/uL (0-0.2); Eosinophils # (auto) 0.4 10 ^3/uL (0-0.8); Hemoglobin 8.5 g/dL (12.2-16.2); Lymphocytes # (auto) 2.2 10 ^3/uL (0.4-5.4); Lymphocytes % (auto) 26.3 % (10.0-50.0); Mean Corpuscular Hemoglobin 30.3 pg (28.0-32.0); Mean Corpuscular Hgb Conc. 33.6 g/dL (32.0-36.0); White Blood Cell 8.5 10^3/uL (4.4-10.8)
[2020-11-06 10:34] LABS: Basophils % (auto) 0.3 % (0.0-2.0); Hematocrit 25.4 % (36.0-46.0); Monocytes # (auto) 0.8 10 ^3/uL (0-1.3); Monocytes % (auto) 8.9 % (0.0-12.0); Neutrophils # (auto) 5.1 10 ^3/uL (1.6-8.6); Neutrophils % (auto) 59.5 % (37.0-80.0); Red Blood Cells 2.82 10^6/uL (4.0-5.20); Red Cell Distribution Width 13.9 % (11.8-14.3)
[2020-11-06] MEDS: fentaNYL Drip 2500mCg/250mlNS 250 ML IV SCH (15:45)
[2020-11-06] MEDS: LABETALOL HCL 5 MG/ML 4ML SYRINGE IV PRN (17:36)
[2020-11-06] MEDS: FREE WATER GT SCH ×2 (17:41→22:01)
[2020-11-06] MEDS: hydrALAZINE HCL 20 MG/ML VL IV PRN (23:37)
[2020-11-07] VITALS (73 sets, daily range): BP systolic 134–198; BP diastolic 76–107
[2020-11-07] MEDS: LABETALOL HCL 5 MG/ML 4ML SYRINGE IV PRN ×2 (01:17→16:36)
[2020-11-07] MEDS: FREE WATER GT SCH ×6 (02:44→22:22)
[2020-11-07 04:13] LABS: Basophils # (auto) 0 10 ^3/uL (0-0.2); Eosinophils # (auto) 0.4 10 ^3/uL (0-0.8); Eosinophils % (auto) 4.3 % (0.0-7.0); Monocytes # (auto) 0.7 10 ^3/uL (0-1.3)
[2020-11-07 04:15] LABS: Basophils % (auto) 0.5 % (0.0-2.0); Hematocrit 25.9 % (36.0-46.0); Hemoglobin 8.6 g/dL (12.2-16.2); Lymphocytes % (auto) 21.5 % (10.0-50.0); Mean Corpuscular Hemoglobin 29.8 pg (28.0-32.0); Mean Corpuscular Hgb Conc. 33.3 g/dL (32.0-36.0); Mean Corpuscular Volume 89.5 fL (80.0-100.0); Monocytes % (auto) 7.1 % (0.0-12.0); Neutrophils # (auto) 6.3 10 ^3/uL (1.6-8.6); Neutrophils % (auto) 66.6 % (37.0-80.0); Nucleated Red Blood Cells % 0.1 %; Red Cell Distribution Width 13.9 % (11.8-14.3); White Blood Cell 9.5 10^3/uL (4.4-10.8)
[2020-11-07 04:37] LABS: BUN/Creatinine Ratio 12.4; Calcium 8.5 mg/dL (8.5-10.1); Potassium 3.5 mmol/L (3.5-5.1)
[2020-11-07] MEDS: InsuLIN REG 1unit/0.01ml Soln (100units/ml) SC SCH ×3 (05:21→18:00)
[2020-11-07] MEDS: ACCU-CHEK COMFORT CURVE STRIP VI SCH ×3 (05:21→18:22)
[2020-11-07] MEDS: PROPOFOL 100 ML IV SCH ×7 (05:23→23:53)
[2020-11-07] MEDS ORDERED: methylPREDNISolone SOD SUCC 40 MG/ML VL IV SCH (10:00)
[2020-11-07] MEDS: cefTRIAXone 1GM/50ML D5W 50 ML IV SCH (11:28)
[2020-11-07] MEDS: METOPROLOL TARTRATE 25 MG TAB NG SCH ×2 (11:29→22:19)
[2020-11-07] MEDS: FAMOTIDINE (10MG/ML) 2ML VL IV SCH (11:30)
[2020-11-07] MEDS: FLUCONAZOLE 200MG/100ML 100 ML IV SCH (11:53)
[2020-11-07] MEDS: INSULIN LANTUS (GLARGINE) 1 /0.01ml (100units/ml) SC SCH (11:54)
[2020-11-07] MEDS: fentaNYL Drip 2500mCg/250mlNS 250 ML IV SCH (14:35)
[2020-11-07] MEDS: hydrALAZINE HCL 20 MG/ML VL IV PRN (14:43)
[2020-11-07] MEDS: methylPREDNISolone SOD SUCC 40 MG/ML VL IV SCH (22:16)
[2020-11-08] VITALS (94 sets, daily range): BP systolic 18–191; BP diastolic 59–106
[2020-11-08] MEDS: ACCU-CHEK COMFORT CURVE STRIP VI SCH ×4 (00:19→17:12)
[2020-11-08] MEDS: FAMOTIDINE (10MG/ML) 2ML VL IV SCH ×2 (00:25→12:26)
[2020-11-08] MEDS: InsuLIN REG 1unit/0.01ml Soln (100units/ml) SC SCH ×4 (00:26→17:12)
[2020-11-08] MEDS: hydrALAZINE HCL 20 MG/ML VL IV PRN ×2 (01:36→17:22)
[2020-11-08] MEDS: FREE WATER GT SCH ×6 (01:39→22:00)
[2020-11-08] MEDS: PROPOFOL 100 ML IV SCH ×6 (02:23→19:49)
[2020-11-08 04:29] LABS: Basophils # (auto) 0.1 10 ^3/uL (0-0.2); Basophils % (auto) 0.4 % (0.0-2.0); Eosinophils # (auto) 0 10 ^3/uL (0-0.8); Hemoglobin 9.6 g/dL (12.2-16.2); Lymphocytes # (auto) 1.3 10 ^3/uL (0.4-5.4); Monocytes # (auto) 0.3 10 ^3/uL (0-1.3); White Blood Cell 13.6 10^3/uL (4.4-10.8)
[2020-11-08 04:31] LABS: Eosinophils % (auto) 0.3 % (0.0-7.0); Hematocrit 29.2 % (36.0-46.0); Lymphocytes % (auto) 9.7 % (10.0-50.0); Mean Corpuscular Hemoglobin 29.6 pg (28.0-32.0); Mean Corpuscular Hgb Conc. 33.1 g/dL (32.0-36.0); Mean Corpuscular Volume 89.4 fL (80.0-100.0); Monocytes % (auto) 2.3 % (0.0-12.0); Neutrophils # (auto) 11.9 10 ^3/uL (1.6-8.6); Neutrophils % (auto) 87.3 % (37.0-80.0); Nucleated Red Blood Cells % 0.2 %; Red Blood Cells 3.26 10^6/uL (4.0-5.20); Red Cell Distribution Width 13.9 % (11.8-14.3)
[2020-11-08 04:48] LABS: Albumin 1.8 g/dL (3.4-5.0); BUN/Creatinine Ratio 16.9; Calcium 8.9 mg/dL (8.5-10.1); Potassium 4.2 mmol/L (3.5-5.1)
[2020-11-08 04:51] LABS: Bilirubin, Total 0.7 mg/dL (0.2-1.0); Total Protein 6.5 g/dL (6.4-8.2)
[2020-11-08 05:03] LABS: INR 1.03 (0.9-1.15); Partial Thromboplastin Time 23.8 sec (23.0-31.2)
[2020-11-08] MEDS: methylPREDNISolone SOD SUCC 40 MG/ML VL IV SCH ×3 (06:39→22:26)
[2020-11-08 09:11] LABS: Cholesterol 268 mg/dL (< 200); HDL Cholesterol 27 mg/dL (40-59); Triglycerides 379 mg/dL (< 150)
[2020-11-08 09:12] LABS: LDL Cholesterol 175 mg/dL (< 100)
[2020-11-08] MEDS ORDERED: IV IMMUNE GLOBULIN(IVIG) 10% 20G/200ML IV SCH (10:00)
[2020-11-08] MEDS: FLUCONAZOLE 200MG/100ML 100 ML IV SCH (10:15)
[2020-11-08] MEDS: INSULIN LANTUS (GLARGINE) 1 /0.01ml (100units/ml) SC SCH (10:15)
[2020-11-08] MEDS: levoFLOXacin 500MG 100 ML IV SCH (10:16)
[2020-11-08] MEDS: METOPROLOL TARTRATE 25 MG TAB NG SCH ×2 (10:16→22:27)
[2020-11-08] MEDS: fentaNYL Drip 2500mCg/250mlNS 250 ML IV SCH (10:33)
[2020-11-08] MEDS: diphenhdrAMINE HCL 50 MG/1 ML VL IV SCH (13:55)
[2020-11-08] MEDS: IV IMMUNE GLOBULIN(IVIG) 10% 20G/200ML IV SCH (14:19)
[2020-11-09] VITALS (86 sets, daily range): BP systolic 131–194; BP diastolic 72–104
[2020-11-09] MEDS: PROPOFOL 100 ML IV SCH ×8 (00:31→20:18)
[2020-11-09] MEDS: ACCU-CHEK COMFORT CURVE STRIP VI SCH ×4 (00:31→17:12)
[2020-11-09] MEDS: FAMOTIDINE (10MG/ML) 2ML VL IV SCH ×2 (00:31→12:08)
[2020-11-09] MEDS: hydrALAZINE HCL 20 MG/ML VL IV PRN ×2 (00:35→10:41)
[2020-11-09] MEDS: InsuLIN REG 1unit/0.01ml Soln (100units/ml) SC SCH ×4 (00:45→17:12)
[2020-11-09] MEDS: FREE WATER GT SCH ×5 (01:50→17:11)
[2020-11-09] MEDS: LABETALOL HCL 5 MG/ML ML 20ML VIAL IV PRN (04:09)
[2020-11-09 04:13] LABS: Hematocrit 26.5 % (36.0-46.0); Hemoglobin 8.7 g/dL (12.2-16.2); Mean Corpuscular Hemoglobin 29.9 pg (28.0-32.0); Mean Corpuscular Hgb Conc. 32.9 g/dL (32.0-36.0); Mean Corpuscular Volume 90.9 fL (80.0-100.0); Red Blood Cells 2.92 10^6/uL (4.0-5.20); White Blood Cell 12.1 10^3/uL (4.4-10.8)
[2020-11-09 04:31] LABS: Basophils % (manual) 0 (0.0-2.0); Blast Cells 0; Eosinophils % (manual) 0 (0-7); Reactive Lymphocytes 0
[2020-11-09 05:34] LABS: Band Neutrophils % (manual) 7; Lymphocytes % (manual) 7 (10.0-50.0); Metamyelocytes % 1; Monocytes % (manual) 2 (0-12); Myelocytes % 1; Promyelocytes % 1
[2020-11-09] MEDS: methylPREDNISolone SOD SUCC 40 MG/ML VL IV SCH ×3 (06:33→20:59)
[2020-11-09] MEDS: fentaNYL Drip 2500mCg/250mlNS 250 ML IV SCH (06:37)
[2020-11-09] MEDS: levoFLOXacin 500MG 100 ML IV SCH (09:11)
[2020-11-09] MEDS: FLUCONAZOLE 200MG/100ML 100 ML IV SCH (09:45)
[2020-11-09] MEDS: METOPROLOL TARTRATE 25 MG TAB NG SCH ×2 (09:46→20:58)
[2020-11-09] MEDS: INSULIN LANTUS (GLARGINE) 1 /0.01ml (100units/ml) SC SCH (10:30)
[2020-11-09] MEDS: diphenhdrAMINE HCL 50 MG/1 ML VL IV SCH (12:35)
[2020-11-09] MEDS: IV IMMUNE GLOBULIN(IVIG) 10% 20G/200ML IV SCH (13:19)
[2020-11-09] MEDS ORDERED: METOPROLOL TARTRATE 1MG/1ML-5ML VIAL IV ONE (17:30)
[2020-11-10] VITALS (99 sets, daily range): BP systolic 130–167; BP diastolic 69–97
[2020-11-10] MEDS: ACCU-CHEK COMFORT CURVE STRIP VI SCH ×4 (00:04→17:36)
[2020-11-10] MEDS: InsuLIN REG 1unit/0.01ml Soln (100units/ml) SC SCH ×4 (00:20→17:42)
[2020-11-10] MEDS: FAMOTIDINE (10MG/ML) 2ML VL IV SCH ×2 (01:24→12:31)
[2020-11-10] MEDS: fentaNYL Drip 2500mCg/250mlNS 250 ML IV SCH ×2 (01:27→16:19)
[2020-11-10] MEDS: PROPOFOL 100 ML IV SCH ×10 (01:28→22:44)
[2020-11-10 04:45] LABS: Hemoglobin 8.3 g/dL (12.2-16.2)
[2020-11-10 04:46] LABS: Hematocrit 24.4 % (36.0-46.0); Mean Corpuscular Hemoglobin 30.2 pg (28.0-32.0); Mean Corpuscular Hgb Conc. 34.1 g/dL (32.0-36.0); Mean Corpuscular Volume 88.6 fL (80.0-100.0); Red Blood Cells 2.76 10^6/uL (4.0-5.20); Red Cell Distribution Width 13.8 % (11.8-14.3); White Blood Cell 10.5 10^3/uL (4.4-10.8)
[2020-11-10 05:26] LABS: Basophils % (manual) 0 (0.0-2.0); Blast Cells 0; Eosinophils % (manual) 0 (0-7); Myelocytes % 0; Promyelocytes % 0; Reactive Lymphocytes 0
[2020-11-10] MEDS: methylPREDNISolone SOD SUCC 40 MG/ML VL IV SCH ×3 (05:55→22:10)
[2020-11-10] MEDS: LABETALOL HCL 5 MG/ML ML 20ML VIAL IV PRN (06:31)
[2020-11-10 06:33] LABS: Band Neutrophils % (manual) 4; Lymphocytes % (manual) 9 (10.0-50.0); Metamyelocytes % 1; Monocytes % (manual) 3 (0-12)
[2020-11-10] MEDS: FLUCONAZOLE 200MG/100ML 100 ML IV SCH (09:29)
[2020-11-10] MEDS: diphenhdrAMINE HCL 50 MG/1 ML VL IV SCH (09:29)
[2020-11-10] MEDS: levoFLOXacin 500MG 100 ML IV SCH (09:30)
[2020-11-10] MEDS: METOPROLOL TARTRATE 25 MG TAB NG SCH ×2 (09:31→22:11)
[2020-11-10] MEDS: INSULIN LANTUS (GLARGINE) 1 /0.01ml (100units/ml) SC SCH (10:31)
[2020-11-11] VITALS (100 sets, daily range): BP systolic 127–174; BP diastolic 67–102
[2020-11-11] MEDS: ACCU-CHEK COMFORT CURVE STRIP VI SCH ×4 (00:13→18:25)
[2020-11-11] MEDS: FAMOTIDINE (10MG/ML) 2ML VL IV SCH ×2 (00:13→12:54)
[2020-11-11] MEDS: InsuLIN REG 1unit/0.01ml Soln (100units/ml) SC SCH ×4 (00:14→18:26)
[2020-11-11] MEDS: PROPOFOL 100 ML IV SCH ×8 (01:18→21:30)
[2020-11-11] MEDS: fentaNYL Drip 2500mCg/250mlNS 250 ML IV SCH ×2 (05:49→12:58)
[2020-11-11] MEDS: methylPREDNISolone SOD SUCC 40 MG/ML VL IV SCH (06:03)
[2020-11-11 06:14] LABS: Hematocrit 27.8 % (36.0-46.0); Hemoglobin 9.5 g/dL (12.2-16.2); Mean Corpuscular Hemoglobin 30.2 pg (28.0-32.0); Mean Corpuscular Hgb Conc. 34.1 g/dL (32.0-36.0); Mean Corpuscular Volume 88.8 fL (80.0-100.0); Red Blood Cells 3.13 10^6/uL (4.0-5.20); Red Cell Distribution Width 13.6 % (11.8-14.3); White Blood Cell 11.1 10^3/uL (4.4-10.8)
[2020-11-11 06:18] LABS: Basophils % (manual) 0 (0.0-2.0); Blast Cells 0; Eosinophils % (manual) 0 (0-7); Promyelocytes % 0; Reactive Lymphocytes 0
[2020-11-11 07:19] LABS: Band Neutrophils % (manual) 1; Lymphocytes % (manual) 12 (10.0-50.0); Metamyelocytes % 3; Monocytes % (manual) 1 (0-12); Myelocytes % 3
[2020-11-11] MEDS ORDERED: FAMOTIDINE (10MG/ML) 2ML VL IV SCH (08:15)
[2020-11-11] MEDS: diphenhdrAMINE HCL 50 MG/1 ML VL IV SCH (09:30)
[2020-11-11] MEDS: levoFLOXacin 500MG 100 ML IV SCH (09:31)
[2020-11-11] MEDS: METOPROLOL TARTRATE 25 MG TAB NG SCH ×2 (09:31→21:31)
[2020-11-11] MEDS: FLUCONAZOLE 200MG/100ML 100 ML IV SCH (09:31)
[2020-11-11] MEDS: INSULIN LANTUS (GLARGINE) 1 /0.01ml (100units/ml) SC SCH (09:37)
[2020-11-12] VITALS (93 sets, daily range): BP systolic 102–176; BP diastolic 52–95
[2020-11-12] MEDS: PROPOFOL 100 ML IV SCH ×10 (01:03→20:03)
[2020-11-12] MEDS: InsuLIN REG 1unit/0.01ml Soln (100units/ml) SC SCH ×5 (01:12→23:54)
[2020-11-12] MEDS: ACCU-CHEK COMFORT CURVE STRIP VI SCH ×5 (01:13→23:54)
[2020-11-12] MEDS: FAMOTIDINE (10MG/ML) 2ML VL IV SCH ×3 (01:13→23:54)
[2020-11-12] MEDS: fentaNYL Drip 2500mCg/250mlNS 250 ML IV SCH ×2 (03:48→12:19)
[2020-11-12 06:18] LABS: Hematocrit 26.6 % (36.0-46.0); Red Blood Cells 3.05 10^6/uL (4.0-5.20); Red Cell Distribution Width 13.4 % (11.8-14.3); White Blood Cell 13.5 10^3/uL (4.4-10.8)
[2020-11-12 06:21] LABS: Hemoglobin 9.6 g/dL (12.2-16.2); Mean Corpuscular Hemoglobin 31.4 pg (28.0-32.0); Mean Corpuscular Volume 87.1 fL (80.0-100.0)
[2020-11-12 06:28] LABS: Albumin 1.5 g/dL (3.4-5.0); Calcium 7.5 mg/dL (8.5-10.1)
[2020-11-12 06:44] LABS: Bilirubin, Total 0.5 mg/dL (0.2-1.0)
[2020-11-12 06:49] LABS: Potassium 2.9 mmol/L (3.5-5.1)
[2020-11-12 07:06] LABS: Basophils % (manual) 0 (0.0-2.0); Blast Cells 0; Eosinophils % (manual) 0 (0-7); Monocytes % (manual) 0 (0-12); Myelocytes % 0; Promyelocytes % 0
[2020-11-12 07:34] LABS: BUN/Creatinine Ratio 25.9
[2020-11-12 07:35] LABS: Total Protein 4.9 g/dL (6.4-8.2)
[2020-11-12] MEDS: FLUCONAZOLE 200MG/100ML 100 ML IV SCH (09:17)
[2020-11-12] MEDS: levoFLOXacin 500MG 100 ML IV SCH (09:17)
[2020-11-12] MEDS: POTASSIUM CHL 20MEQ/100ML 100 ML IV SCH ×3 (09:21→12:19)
[2020-11-12] MEDS: METOPROLOL TARTRATE 25 MG TAB NG SCH ×2 (09:33→21:57)
[2020-11-12] MEDS: diphenhdrAMINE HCL 50 MG/1 ML VL IV SCH (09:33)
[2020-11-12] MEDS: INSULIN LANTUS (GLARGINE) 1 /0.01ml (100units/ml) SC SCH (09:34)
[2020-11-12] MEDS ORDERED: MAGNESIUM SULFATE 1GM/100ML 100 ML IV ONE (11:15)
[2020-11-12 11:31] LABS: Band Neutrophils % (manual) 11; Lymphocytes % (manual) 18 (10.0-50.0); Metamyelocytes % 2; Reactive Lymphocytes 2
[2020-11-12] MEDS: FUROSEMIDE 40 MG/4 ML VIAL IV SCH (17:52)
[2020-11-13] VITALS (85 sets, daily range): BP systolic 122–163; BP diastolic 57–103
[2020-11-13] MEDS: PROPOFOL 100 ML IV SCH ×8 (00:40→18:32)
[2020-11-13] MEDS: LABETALOL HCL 5 MG/ML ML 20ML VIAL IV PRN (02:01)
[2020-11-13] MEDS: hydrALAZINE HCL 20 MG/ML VL IV PRN (02:07)
[2020-11-13] MEDS: fentaNYL Drip 2500mCg/250mlNS 250 ML IV SCH ×2 (02:15→14:03)
[2020-11-13] MEDS: ACETAMINOPHEN 650 mg PER 20.3 mL UD GT PRN (05:16)
[2020-11-13] MEDS: InsuLIN REG 1unit/0.01ml Soln (100units/ml) SC SCH ×3 (05:31→18:02)
[2020-11-13] MEDS: FUROSEMIDE 40 MG/4 ML VIAL IV SCH ×2 (05:31→17:56)
[2020-11-13] MEDS: ACCU-CHEK COMFORT CURVE STRIP VI SCH ×3 (05:32→17:57)
[2020-11-13] MEDS: levoFLOXacin 500MG 100 ML IV SCH (09:48)
[2020-11-13] MEDS: FLUCONAZOLE 200MG/100ML 100 ML IV SCH (09:48)
[2020-11-13] MEDS: METOPROLOL TARTRATE 25 MG TAB NG SCH ×2 (09:49→22:42)
[2020-11-13] MEDS: INSULIN LANTUS (GLARGINE) 1 /0.01ml (100units/ml) SC SCH (10:03)
[2020-11-13 10:22] LABS: Basophils # (auto) 0.1 10 ^3/uL (0-0.2); Basophils % (auto) 1.1 % (0.0-2.0); Eosinophils # (auto) 0.5 10 ^3/uL (0-0.8); Eosinophils % (auto) 6.1 % (0.0-7.0); Hematocrit 25.8 % (36.0-46.0); Hemoglobin 9.2 g/dL (12.2-16.2); Lymphocytes # (auto) 3.1 10 ^3/uL (0.4-5.4); Lymphocytes % (auto) 34.9 % (10.0-50.0); Mean Corpuscular Hemoglobin 30.3 pg (28.0-32.0); Mean Corpuscular Hgb Conc. 35.5 g/dL (32.0-36.0); Mean Corpuscular Volume 85.4 fL (80.0-100.0); Monocytes # (auto) 0.4 10 ^3/uL (0-1.3); Neutrophils # (auto) 4.8 10 ^3/uL (1.6-8.6); Neutrophils % (auto) 53.9 % (37.0-80.0); Nucleated Red Blood Cells % 0.1 %; Red Blood Cells 3.02 10^6/uL (4.0-5.20); Red Cell Distribution Width 13.2 % (11.8-14.3); White Blood Cell 8.9 10^3/uL (4.4-10.8)
[2020-11-13 10:39] LABS: Albumin 1.4 g/dL (3.4-5.0); Calcium 7.6 mg/dL (8.5-10.1)
[2020-11-13 10:43] LABS: Bilirubin, Total 0.4 mg/dL (0.2-1.0); Total Protein 6.8 g/dL (6.4-8.2)
[2020-11-13 11:12] LABS: BUN/Creatinine Ratio 17.2
[2020-11-13 11:25] LABS: Potassium 2.9 mmol/L (3.5-5.1)
[2020-11-13] MEDS: POTASSIUM CHL 20MEQ/100ML 100 ML IV SCH ×3 (11:55→16:00)
[2020-11-13] MEDS: diphenhdrAMINE HCL 50 MG/1 ML VL IV SCH (11:58)
[2020-11-13] MEDS: FAMOTIDINE (10MG/ML) 2ML VL IV SCH (11:58)
[2020-11-13] MEDS: POTASSIUM EFFERVESENT TAB 25 MEQ GT SCH (22:00)
[2020-11-14] VITALS (85 sets, daily range): BP systolic 125–187; BP diastolic 68–107
[2020-11-14] MEDS: FAMOTIDINE (10MG/ML) 2ML VL IV SCH ×2 (00:11→13:17)
[2020-11-14] MEDS: InsuLIN REG 1unit/0.01ml Soln (100units/ml) SC SCH ×5 (00:21→23:55)
[2020-11-14] MEDS: ACCU-CHEK COMFORT CURVE STRIP VI SCH ×5 (00:22→23:44)
[2020-11-14] MEDS: PROPOFOL 100 ML IV SCH (09:10)
[2020-11-14] MEDS: diphenhdrAMINE HCL 50 MG/1 ML VL IV SCH (10:00)
[2020-11-14] MEDS: FLUCONAZOLE 200MG/100ML 100 ML IV SCH (10:13)
[2020-11-14] MEDS: POTASSIUM EFFERVESENT TAB 25 MEQ GT SCH ×2 (10:13→22:08)
[2020-11-14] MEDS: levoFLOXacin 500MG 100 ML IV SCH (10:14)
[2020-11-14] MEDS: METOPROLOL TARTRATE 25 MG TAB NG SCH ×2 (10:22→22:10)
[2020-11-14] MEDS: INSULIN LANTUS (GLARGINE) 1 /0.01ml (100units/ml) SC SCH (10:29)
[2020-11-14] MEDS: fentaNYL Drip 2500mCg/250mlNS 250 ML IV SCH (15:03)
[2020-11-14] MEDS: ACETAMINOPHEN 650 mg PER 20.3 mL UD GT PRN (20:51)
[2020-11-15] VITALS (101 sets, daily range): BP systolic 121–170; BP diastolic 50–101
[2020-11-15] MEDS ORDERED: MAGNESIUM SULFATE 1GM/100ML 200 ML IV ONE (01:06)
[2020-11-15] MEDS: FAMOTIDINE (10MG/ML) 2ML VL IV SCH ×2 (01:10→12:45)
[2020-11-15] MEDS: MAGNESIUM SULFATE 1GM/100ML 100 ML IV SCH ×4 (01:10→14:00)
[2020-11-15] MEDS: ACCU-CHEK COMFORT CURVE STRIP VI SCH ×3 (06:03→18:00)
[2020-11-15] MEDS: InsuLIN REG 1unit/0.01ml Soln (100units/ml) SC SCH ×3 (06:05→18:57)
[2020-11-15 08:42] LABS: Basophils # (auto) 0 10 ^3/uL (0-0.2); Basophils % (auto) 0.5 % (0.0-2.0); Eosinophils # (auto) 0.6 10 ^3/uL (0-0.8); Eosinophils % (auto) 9.2 % (0.0-7.0); Hematocrit 26.3 % (36.0-46.0); Hemoglobin 8.9 g/dL (12.2-16.2); Lymphocytes # (auto) 1.4 10 ^3/uL (0.4-5.4); Lymphocytes % (auto) 22.4 % (10.0-50.0); Mean Corpuscular Volume 85.3 fL (80.0-100.0); Monocytes # (auto) 0.4 10 ^3/uL (0-1.3); Monocytes % (auto) 6.8 % (0.0-12.0); Neutrophils # (auto) 3.7 10 ^3/uL (1.6-8.6); Neutrophils % (auto) 61.1 % (37.0-80.0); Red Blood Cells 3.08 10^6/uL (4.0-5.20); Red Cell Distribution Width 13.5 % (11.8-14.3); White Blood Cell 6.1 10^3/uL (4.4-10.8)
[2020-11-15] MEDS ORDERED: ONDANSETRON HCL 4 MG/2 ML VIAL IV PRN (08:45)
[2020-11-15 09:21] LABS: Albumin 1.5 g/dL (3.4-5.0); BUN/Creatinine Ratio 13.7; Bilirubin, Total 0.6 mg/dL (0.2-1.0); Calcium 7.9 mg/dL (8.5-10.1); Magnesium 1.7 mg/dL (1.6-2.6); Phosphorus 3.2 mg/dL (2.5-4.90); Total Protein 6.3 g/dL (6.4-8.2)
[2020-11-15] MEDS: diphenhdrAMINE HCL 50 MG/1 ML VL IV SCH (09:37)
[2020-11-15 09:42] LABS: Potassium 2.8 mmol/L (3.5-5.1)
[2020-11-15] MEDS: POTASSIUM EFFERVESENT TAB 25 MEQ GT SCH ×2 (10:03→21:39)
[2020-11-15] MEDS: levoFLOXacin 500MG 100 ML IV SCH (10:09)
[2020-11-15] MEDS: FLUCONAZOLE 200MG/100ML 100 ML IV SCH (10:12)
[2020-11-15] MEDS: methylPREDNISolone SOD SUCC 125 MG/2 ML VL IV SCH ×3 (10:15→18:58)
[2020-11-15] MEDS: METOPROLOL TARTRATE 25 MG TAB NG SCH ×2 (10:16→21:40)
[2020-11-15] MEDS: INSULIN LANTUS (GLARGINE) 1 /0.01ml (100units/ml) SC SCH (10:24)
[2020-11-15] MEDS: METOCLOPRAMIDE HCL 5MG/ml INJ 2ml VIAL IV SCH ×2 (10:28→21:39)
[2020-11-15] MEDS: POTASSIUM CHL 20MEQ/100ML 100 ML IV SCH ×2 (12:34→12:45)
[2020-11-15] MEDS: PROPOFOL 100 ML IV SCH (12:35)
[2020-11-15] MEDS: fentaNYL Drip 2500mCg/250mlNS 250 ML IV SCH (14:46)
[2020-11-16] VITALS (94 sets, daily range): BP systolic 120–160; BP diastolic 75–97
[2020-11-16] MEDS: FAMOTIDINE (10MG/ML) 2ML VL IV SCH ×2 (00:39→12:45)
[2020-11-16] MEDS: methylPREDNISolone SOD SUCC 125 MG/2 ML VL IV SCH ×4 (00:39→18:15)
[2020-11-16] MEDS: ACCU-CHEK COMFORT CURVE STRIP VI SCH ×4 (00:41→18:15)
[2020-11-16] MEDS: InsuLIN REG 1unit/0.01ml Soln (100units/ml) SC SCH ×4 (01:19→18:16)
[2020-11-16 06:50] LABS: Basophils # (auto) 0 10 ^3/uL (0-0.2); Basophils % (auto) 0.6 % (0.0-2.0); Eosinophils # (auto) 0 10 ^3/uL (0-0.8); Eosinophils % (auto) 0.1 % (0.0-7.0); Hematocrit 28.3 % (36.0-46.0); Hemoglobin 9.7 g/dL (12.2-16.2); Lymphocytes # (auto) 0.8 10 ^3/uL (0.4-5.4); Lymphocytes % (auto) 13.9 % (10.0-50.0); Mean Corpuscular Hemoglobin 29.1 pg (28.0-32.0); Mean Corpuscular Hgb Conc. 34.5 g/dL (32.0-36.0); Mean Corpuscular Volume 84.5 fL (80.0-100.0); Monocytes # (auto) 0.2 10 ^3/uL (0-1.3); Monocytes % (auto) 3.9 % (0.0-12.0); Neutrophils # (auto) 4.7 10 ^3/uL (1.6-8.6); Neutrophils % (auto) 81.5 % (37.0-80.0); Nucleated Red Blood Cells % 0.2 %; Red Blood Cells 3.35 10^6/uL (4.0-5.20); Red Cell Distribution Width 13.3 % (11.8-14.3); White Blood Cell 5.8 10^3/uL (4.4-10.8)
[2020-11-16 07:11] LABS: BUN/Creatinine Ratio 20.3; Calcium 7.9 mg/dL (8.5-10.1); Magnesium 1.9 mg/dL (1.6-2.6); Phosphorus 2.7 mg/dL (2.5-4.90); Potassium 3.7 mmol/L (3.5-5.1)
[2020-11-16] MEDS: diphenhdrAMINE HCL 50 MG/1 ML VL IV SCH (10:00)
[2020-11-16] MEDS: POTASSIUM EFFERVESENT TAB 25 MEQ GT SCH ×2 (10:14→21:52)
[2020-11-16] MEDS: FLUCONAZOLE 200MG/100ML 100 ML IV SCH (10:14)
[2020-11-16] MEDS: levoFLOXacin 500MG 100 ML IV SCH (10:16)
[2020-11-16] MEDS: METOPROLOL TARTRATE 25 MG TAB NG SCH ×2 (10:16→22:00)
[2020-11-16] MEDS: INSULIN LANTUS (GLARGINE) 1 /0.01ml (100units/ml) SC SCH (10:17)
[2020-11-16] MEDS: METOCLOPRAMIDE HCL 5MG/ml INJ 2ml VIAL IV SCH ×2 (10:18→22:00)
[2020-11-16] MEDS: PROPOFOL 100 ML IV SCH (13:00)
[2020-11-16] MEDS ORDERED: EPINEPHrine HCL 0.5 ML NEB NEB ONE (15:30)
[2020-11-16] MEDS: fentaNYL Drip 2500mCg/250mlNS 250 ML IV SCH (15:45)
[2020-11-16] MEDS: ACETAMINOPHEN 650 mg PER 20.3 mL UD GT PRN (22:02)
[2020-11-17] VITALS (76 sets, daily range): BP systolic 117–165; BP diastolic 63–96
[2020-11-17] MEDS: methylPREDNISolone SOD SUCC 125 MG/2 ML VL IV SCH ×2 (00:03→06:10)
[2020-11-17] MEDS: ACCU-CHEK COMFORT CURVE STRIP VI SCH ×5 (00:03→23:47)
[2020-11-17] MEDS: FAMOTIDINE (10MG/ML) 2ML VL IV SCH ×2 (00:03→12:43)
[2020-11-17] MEDS: InsuLIN REG 1unit/0.01ml Soln (100units/ml) SC SCH ×5 (00:05→23:59)
[2020-11-17 08:22] LABS: Potassium 3.3 mmol/L (3.5-5.1)
[2020-11-17 08:32] LABS: Basophils # (auto) 0 10 ^3/uL (0-0.2); Basophils % (auto) 0.1 % (0.0-2.0); Eosinophils # (auto) 0 10 ^3/uL (0-0.8); Eosinophils % (auto) 0.1 % (0.0-7.0); Hematocrit 29.4 % (36.0-46.0); Hemoglobin 9.9 g/dL (12.2-16.2); Lymphocytes # (auto) 1.4 10 ^3/uL (0.4-5.4); Lymphocytes % (auto) 14.6 % (10.0-50.0); Mean Corpuscular Hemoglobin 28.5 pg (28.0-32.0); Mean Corpuscular Hgb Conc. 33.7 g/dL (32.0-36.0); Mean Corpuscular Volume 84.4 fL (80.0-100.0); Neutrophils % (auto) 74.2 % (37.0-80.0); Nucleated Red Blood Cells % 0.1 %; Red Blood Cells 3.48 10^6/uL (4.0-5.20); Red Cell Distribution Width 13.7 % (11.8-14.3); White Blood Cell 9.4 10^3/uL (4.4-10.8)
[2020-11-17 08:37] LABS: BUN/Creatinine Ratio 23.8; Calcium 7.8 mg/dL (8.5-10.1)
[2020-11-17 08:48] LABS: Phosphorus 2.3 mg/dL (2.5-4.90)
[2020-11-17] MEDS: diphenhdrAMINE HCL 50 MG/1 ML VL IV SCH (10:00)
[2020-11-17] MEDS ORDERED: POTASSIUM PHOSPHATE 44 MEQ in D5W 5% 250 ML IV ONE (10:15)
[2020-11-17] MEDS: INSULIN LANTUS (GLARGINE) 1 /0.01ml (100units/ml) SC SCH (10:38)
[2020-11-17] MEDS: LISINOPRIL 10 MG TAB PO SCH (10:39)
[2020-11-17] MEDS: METOCLOPRAMIDE HCL 5MG/ml INJ 2ml VIAL IV SCH ×2 (10:40→22:12)
[2020-11-17] MEDS: METOPROLOL TARTRATE 25 MG TAB NG SCH ×2 (10:40→22:14)
[2020-11-17] MEDS: FLUCONAZOLE 200MG/100ML 100 ML IV SCH (10:41)
[2020-11-17] MEDS: levoFLOXacin 500MG 100 ML IV SCH (10:41)
[2020-11-17] MEDS: POTASSIUM EFFERVESENT TAB 25 MEQ GT SCH ×2 (10:42→22:12)
[2020-11-17] MEDS: PROPOFOL 100 ML IV SCH (12:44)
[2020-11-18] VITALS (64 sets, daily range): BP systolic 124–169; BP diastolic 73–99
[2020-11-18] MEDS: FAMOTIDINE (10MG/ML) 2ML VL IV SCH ×2 (00:45→12:22)
[2020-11-18] MEDS ORDERED: METOPROLOL SUCCINATE XL 50 MG TAB PO ONE (05:00)
[2020-11-18] MEDS: ACCU-CHEK COMFORT CURVE STRIP VI SCH ×3 (06:19→18:38)
[2020-11-18] MEDS: InsuLIN REG 1unit/0.01ml Soln (100units/ml) SC SCH ×3 (06:21→18:38)
[2020-11-18 08:47] LABS: Basophils # (auto) 0 10 ^3/uL (0-0.2); Basophils % (auto) 0.1 % (0.0-2.0); Eosinophils # (auto) 0.1 10 ^3/uL (0-0.8); Eosinophils % (auto) 0.5 % (0.0-7.0); Hematocrit 29.3 % (36.0-46.0); Lymphocytes # (auto) 2.4 10 ^3/uL (0.4-5.4); Lymphocytes % (auto) 24.8 % (10.0-50.0); Mean Corpuscular Hemoglobin 28.8 pg (28.0-32.0); Mean Corpuscular Hgb Conc. 34.2 g/dL (32.0-36.0); Mean Corpuscular Volume 84.3 fL (80.0-100.0); Monocytes # (auto) 1.7 10 ^3/uL (0-1.3); Monocytes % (auto) 17.7 % (0.0-12.0); Neutrophils # (auto) 5.6 10 ^3/uL (1.6-8.6); Neutrophils % (auto) 56.9 % (37.0-80.0); Nucleated Red Blood Cells % 0.1 %; Red Blood Cells 3.47 10^6/uL (4.0-5.20); Red Cell Distribution Width 13.3 % (11.8-14.3); White Blood Cell 9.8 10^3/uL (4.4-10.8)
[2020-11-18 09:10] LABS: Albumin 2.2 g/dL (3.4-5.0); Calcium 7.6 mg/dL (8.5-10.1); Magnesium 1.6 mg/dL (1.6-2.6); Potassium 3.2 mmol/L (3.5-5.1)
[2020-11-18 09:14] LABS: BUN/Creatinine Ratio 18.8; Bilirubin, Total 0.4 mg/dL (0.2-1.0); Total Protein 6.5 g/dL (6.4-8.2)
[2020-11-18] MEDS: METOCLOPRAMIDE HCL 5MG/ml INJ 2ml VIAL IV SCH ×2 (09:47→21:08)
[2020-11-18] MEDS: POTASSIUM EFFERVESENT TAB 25 MEQ GT SCH ×2 (09:47→21:08)
[2020-11-18] MEDS: METOPROLOL TARTRATE 25 MG TAB NG SCH ×3 (09:48→21:10)
[2020-11-18] MEDS: LISINOPRIL 10 MG TAB PO SCH (09:49)
[2020-11-18] MEDS: INSULIN LANTUS (GLARGINE) 1 /0.01ml (100units/ml) SC SCH (09:50)
[2020-11-18 10:42] LABS: INR 1.13 (0.9-1.15); Partial Thromboplastin Time 22.8 sec (23.0-31.2)
[2020-11-18] MEDS ORDERED: POTASSIUM PHOSPHATE 44 MEQ in D5W 5% 250 ML IV ONE (11:30)
[2020-11-18] MEDS ORDERED: LABETALOL HCL 5 MG/ML 4ML SYRINGE IV PRN (12:15)
[2020-11-18] MEDS: hydrALAZINE HCL 20 MG/ML VL IV PRN (12:22)
[2020-11-18] MEDS: MAGNESIUM SULFATE 1GM/100ML 100 ML IV SCH ×2 (14:00→15:00)
[2020-11-18] MEDS ORDERED: LIDOCAINE 1% (LOCAL ANESTH.) PF 5ml SDV ID ONE (14:45)
[2020-11-18] MEDS: LABETALOL HCL 5 MG/ML 4ML SYRINGE IV PRN (17:45)
[2020-11-18] MEDS: SODIUM CHLOR 0.9% PF (SALINE LOCK) 10ML VIAL/SYR IV SCH (21:09)
[2020-11-19] VITALS (21 sets, daily range): BP systolic 127–169; BP diastolic 78–98
[2020-11-19] MEDS: METOPROLOL TARTRATE 25 MG TAB NG SCH (00:13)
[2020-11-19] MEDS: ACCU-CHEK COMFORT CURVE STRIP VI SCH ×4 (00:20→18:00)
[2020-11-19] MEDS: InsuLIN REG 1unit/0.01ml Soln (100units/ml) SC SCH ×4 (00:21→18:00)
[2020-11-19] MEDS: FAMOTIDINE (10MG/ML) 2ML VL IV SCH ×2 (00:45→12:45)
[2020-11-19 05:16] LABS: Potassium 3.7 mmol/L (3.5-5.1)
[2020-11-19 05:26] LABS: Magnesium 1.6 mg/dL (1.6-2.6); Phosphorus 3.7 mg/dL (2.5-4.90)
[2020-11-19] MEDS: cloNIDine HCL 0.1 MG TAB PO PRN (06:20)
[2020-11-19 06:47] LABS: Potassium 3.7 mmol/L (3.5-5.1)
[2020-11-19 07:30] LABS: Albumin 2.3 g/dL (3.4-5.0); BUN/Creatinine Ratio 19.3; Bilirubin, Total 0.3 mg/dL (0.2-1.0); Calcium 7.6 mg/dL (8.5-10.1); Total Protein 6.2 g/dL (6.4-8.2)
[2020-11-19] MEDS: POTASSIUM EFFERVESENT TAB 25 MEQ GT SCH (10:00)
[2020-11-19] MEDS: INSULIN LANTUS (GLARGINE) 1 /0.01ml (100units/ml) SC SCH (10:00)
[2020-11-19] MEDS: METOCLOPRAMIDE HCL 5MG/ml INJ 2ml VIAL IV SCH ×2 (10:00→21:40)
[2020-11-19] MEDS: SODIUM CHLOR 0.9% PF (SALINE LOCK) 10ML VIAL/SYR IV SCH ×2 (10:00→21:45)
[2020-11-19] MEDS: LISINOPRIL 10 MG TAB PO SCH (10:00)
[2020-11-19] MEDS: hydrALAZINE HCL 20 MG/ML VL IV PRN ×2 (14:25→21:45)
[2020-11-19] MEDS ORDERED: POTASSIUM CHL 20MEQ/100ML 100 ML IV ONE (19:45)
[2020-11-19] MEDS: ONDANSETRON HCL 4 MG/2 ML VIAL IV PRN (21:44)
[2020-11-20] VITALS (17 sets, daily range): BP systolic 143–174; BP diastolic 57–102
[2020-11-20] MEDS: FAMOTIDINE (10MG/ML) 2ML VL IV SCH ×3 (01:02→23:49)
[2020-11-20 04:59] LABS: Protein, Urine 22.9 mg/dL (0.0-11.9); Sodium Urine 126 mmol/L (40-220)
[2020-11-20 05:00] LABS: Potassium 3.9 mmol/L (3.5-5.1)
[2020-11-20 05:08] LABS: Creatinine, Urine 12 mg/dL (30.0-125.0)
[2020-11-20] MEDS: InsuLIN REG 1unit/0.01ml Soln (100units/ml) SC SCH ×5 (05:37→23:41)
[2020-11-20] MEDS: ACCU-CHEK COMFORT CURVE STRIP VI SCH ×5 (05:37→23:40)
[2020-11-20] MEDS: INSULIN LANTUS (GLARGINE) 1 /0.01ml (100units/ml) SC SCH (09:22)
[2020-11-20] MEDS: SODIUM CHLOR 0.9% PF (SALINE LOCK) 10ML VIAL/SYR IV SCH ×2 (09:23→22:07)
[2020-11-20] MEDS: METOCLOPRAMIDE HCL 5MG/ml INJ 2ml VIAL IV SCH ×2 (09:24→22:06)
[2020-11-20] MEDS: METOPROLOL TARTRATE 25 MG TAB NG SCH ×2 (10:00→22:07)
[2020-11-20] MEDS: LISINOPRIL 10 MG TAB PO SCH (10:00)
[2020-11-20] MEDS: hydrALAZINE HCL 20 MG/ML VL IV PRN (14:22)
[2020-11-21] MEDS: ACCU-CHEK COMFORT CURVE STRIP VI SCH ×4 (05:12→23:25)
[2020-11-21] MEDS: InsuLIN REG 1unit/0.01ml Soln (100units/ml) SC SCH ×4 (05:13→23:27)
[2020-11-21 05:26] VITALS: BP 163/91
[2020-11-21] MEDS: cloNIDine HCL 0.1 MG TAB PO PRN (05:26)
[2020-11-21 05:38] LABS: Basophils # (auto) 0 10 ^3/uL (0-0.2); Basophils % (auto) 0.4 % (0.0-2.0); Eosinophils # (auto) 1.3 10 ^3/uL (0-0.8); Eosinophils % (auto) 11.5 % (0.0-7.0); Hematocrit 29.5 % (36.0-46.0); Hemoglobin 10.2 g/dL (12.2-16.2); Lymphocytes # (auto) 2.9 10 ^3/uL (0.4-5.4); Mean Corpuscular Hemoglobin 29.1 pg (28.0-32.0); Mean Corpuscular Hgb Conc. 34.7 g/dL (32.0-36.0); Mean Corpuscular Volume 83.7 fL (80.0-100.0); Monocytes # (auto) 0.9 10 ^3/uL (0-1.3); Monocytes % (auto) 8.1 % (0.0-12.0); Neutrophils # (auto) 5.8 10 ^3/uL (1.6-8.6); Nucleated Red Blood Cells % 0.1 %; Red Blood Cells 3.52 10^6/uL (4.0-5.20); Red Cell Distribution Width 13.7 % (11.8-14.3); White Blood Cell 10.9 10^3/uL (4.4-10.8)
[2020-11-21 06:00] LABS: Potassium 3.4 mmol/L (3.5-5.1)
[2020-11-21 06:06] LABS: Albumin 2.7 g/dL (3.4-5.0); BUN/Creatinine Ratio 15.2; Bilirubin, Total 0.6 mg/dL (0.2-1.0); Calcium 8.1 mg/dL (8.5-10.1); Total Protein 6.8 g/dL (6.4-8.2)
[2020-11-21 08:00] VITALS: BP 142/85
[2020-11-21] MEDS: LISINOPRIL 10 MG TAB PO SCH (09:56)
[2020-11-21] MEDS: METOPROLOL TARTRATE 25 MG TAB NG SCH (09:56)
[2020-11-21] MEDS: SODIUM CHLOR 0.9% PF (SALINE LOCK) 10ML VIAL/SYR IV SCH ×2 (09:57→21:25)
[2020-11-21] MEDS: METOCLOPRAMIDE HCL 5MG/ml INJ 2ml VIAL IV SCH (09:57)
[2020-11-21] MEDS: INSULIN LANTUS (GLARGINE) 1 /0.01ml (100units/ml) SC SCH (10:19)
[2020-11-21] MEDS ORDERED: POTASSIUM CHL 10 Meq TABLET PO ONE (10:45)
[2020-11-21] MEDS ORDERED: LACTULOSE 20Gm/30ML SOLN PO PRN (11:15)
[2020-11-21] MEDS: Glucerna Carbsteady SHAKE Vanilla 8oz PO SCH ×2 (12:00→17:40)
[2020-11-21] MEDS: FAMOTIDINE (10MG/ML) 2ML VL IV SCH (12:18)
[2020-11-21 16:00] VITALS: BP 153/81
[2020-11-21] MEDS: METOCLOPRAMIDE HCL 10 MG TAB PO SCH ×2 (17:39→21:25)
[2020-11-21] MEDS: LABETALOL HCL 5 MG/ML 4ML SYRINGE IV PRN (17:41)
[2020-11-21] MEDS: METOPROLOL TARTRATE 25 MG TAB PO SCH (21:39)
[2020-11-21 22:00] VITALS: BP 101/68
[2020-11-22] MEDS: FAMOTIDINE (10MG/ML) 2ML VL IV SCH ×2 (00:04→13:28)
[2020-11-22] MEDS: hydrALAZINE HCL 20 MG/ML VL IV PRN (04:24)
[2020-11-22 05:00] VITALS: BP 173/90
[2020-11-22] MEDS: ACCU-CHEK COMFORT CURVE STRIP VI SCH ×3 (05:17→18:08)
[2020-11-22] MEDS: InsuLIN REG 1unit/0.01ml Soln (100units/ml) SC SCH ×3 (05:19→18:09)
[2020-11-22 05:24] VITALS: BP 134/89
[2020-11-22 05:49] LABS: Basophils # (auto) 0.1 10 ^3/uL (0-0.2); Basophils % (auto) 0.6 % (0.0-2.0); Eosinophils # (auto) 0.9 10 ^3/uL (0-0.8); Eosinophils % (auto) 10.4 % (0.0-7.0); Hemoglobin 10.4 g/dL (12.2-16.2); Lymphocytes # (auto) 1.7 10 ^3/uL (0.4-5.4); Lymphocytes % (auto) 19.3 % (10.0-50.0); Mean Corpuscular Hgb Conc. 34.5 g/dL (32.0-36.0); Mean Corpuscular Volume 84.1 fL (80.0-100.0); Monocytes # (auto) 0.9 10 ^3/uL (0-1.3); Neutrophils # (auto) 5.1 10 ^3/uL (1.6-8.6); Neutrophils % (auto) 58.7 % (37.0-80.0); Red Blood Cells 3.57 10^6/uL (4.0-5.20); Red Cell Distribution Width 14.2 % (11.8-14.3); White Blood Cell 8.6 10^3/uL (4.4-10.8)
[2020-11-22] MEDS: METOCLOPRAMIDE HCL 10 MG TAB PO SCH ×4 (06:02→22:07)
[2020-11-22 06:04] LABS: Potassium 3.4 mmol/L (3.5-5.1)
[2020-11-22 06:24] LABS: BUN/Creatinine Ratio 12.5; Calcium 8.3 mg/dL (8.5-10.1)
[2020-11-22 08:00] VITALS: BP_SYST 132; BP_SYST 156; BP_DIAS 83; BP_DIAS 98
[2020-11-22] MEDS: LABETALOL HCL 5 MG/ML 4ML SYRINGE IV PRN (08:52)
[2020-11-22] MEDS: Glucerna Carbsteady SHAKE Vanilla 8oz PO SCH ×3 (09:45→18:08)
[2020-11-22] MEDS: METOPROLOL TARTRATE 25 MG TAB PO SCH ×2 (09:45→22:07)
[2020-11-22] MEDS: LISINOPRIL 10 MG TAB PO SCH (09:46)
[2020-11-22] MEDS: INSULIN LANTUS (GLARGINE) 1 /0.01ml (100units/ml) SC SCH (09:47)
[2020-11-22] MEDS: SODIUM CHLOR 0.9% PF (SALINE LOCK) 10ML VIAL/SYR IV SCH ×2 (09:48→22:07)
[2020-11-22] MEDS ORDERED: POTASSIUM CHLORIDE 8 MEQ TAB PO ONE (10:00)
[2020-11-22 23:37] VITALS: BP 136/88
[2020-11-23] MEDS: FAMOTIDINE (10MG/ML) 2ML VL IV SCH ×2 (00:48→12:47)
[2020-11-23 05:37] VITALS: BP 130/91
[2020-11-23] MEDS: ACCU-CHEK COMFORT CURVE STRIP VI SCH ×4 (06:10→18:14)
[2020-11-23] MEDS: InsuLIN REG 1unit/0.01ml Soln (100units/ml) SC SCH ×4 (06:16→18:16)
[2020-11-23 06:21] LABS: Basophils # (auto) 0 10 ^3/uL (0-0.2); Basophils % (auto) 0.6 % (0.0-2.0); Eosinophils # (auto) 0.5 10 ^3/uL (0-0.8); Eosinophils % (auto) 8.5 % (0.0-7.0); Hematocrit 28.9 % (36.0-46.0); Lymphocytes # (auto) 1.4 10 ^3/uL (0.4-5.4); Lymphocytes % (auto) 26.2 % (10.0-50.0); Mean Corpuscular Hemoglobin 29.2 pg (28.0-32.0); Mean Corpuscular Hgb Conc. 34.7 g/dL (32.0-36.0); Mean Corpuscular Volume 84.2 fL (80.0-100.0); Monocytes # (auto) 0.9 10 ^3/uL (0-1.3); Monocytes % (auto) 16.6 % (0.0-12.0); Neutrophils # (auto) 2.7 10 ^3/uL (1.6-8.6); Neutrophils % (auto) 48.1 % (37.0-80.0); Red Blood Cells 3.44 10^6/uL (4.0-5.20); Red Cell Distribution Width 14.1 % (11.8-14.3); White Blood Cell 5.5 10^3/uL (4.4-10.8)
[2020-11-23] MEDS: METOCLOPRAMIDE HCL 10 MG TAB PO SCH ×4 (06:21→22:00)
[2020-11-23 06:28] LABS: Potassium 3.5 mmol/L (3.5-5.1)
[2020-11-23 06:40] LABS: BUN/Creatinine Ratio 14.9; Calcium 8.4 mg/dL (8.5-10.1)
[2020-11-23 08:00] VITALS: BP 148/97
[2020-11-23] MEDS: Glucerna Carbsteady SHAKE Vanilla 8oz PO SCH ×3 (11:40→18:14)
[2020-11-23] MEDS: METOPROLOL TARTRATE 25 MG TAB PO SCH ×2 (11:41→22:00)
[2020-11-23] MEDS: SODIUM CHLOR 0.9% PF (SALINE LOCK) 10ML VIAL/SYR IV SCH ×2 (11:41→22:00)
[2020-11-23] MEDS: INSULIN LANTUS (GLARGINE) 1 /0.01ml (100units/ml) SC SCH (11:42)
[2020-11-23] MEDS: LISINOPRIL 10 MG TAB PO SCH (11:44)
[2020-11-23] MEDS: ACETAMINOPHEN 650 mg PER 20.3 mL UD GT PRN (21:20)
[2020-11-23] MEDS: ONDANSETRON HCL 4 MG/2 ML VIAL IV PRN (21:20)
[2020-11-23 22:03] VITALS: BP 149/85
[2020-11-24] MEDS: ACCU-CHEK COMFORT CURVE STRIP VI SCH ×2 (00:01→05:45)
[2020-11-24] MEDS: InsuLIN REG 1unit/0.01ml Soln (100units/ml) SC SCH ×3 (00:08→12:45)
[2020-11-24] MEDS: FAMOTIDINE (10MG/ML) 2ML VL IV SCH (00:31)
[2020-11-24 05:19] VITALS: BP 148/97
[2020-11-24] MEDS: METOCLOPRAMIDE HCL 10 MG TAB PO SCH ×2 (06:51→11:30)
[2020-11-24] MEDS: Glucerna Carbsteady SHAKE Vanilla 8oz PO SCH ×2 (08:00→12:14)
[2020-11-24 09:00] VITALS: BP 141/84
[2020-11-24] MEDS: METOPROLOL TARTRATE 25 MG TAB PO SCH (11:02)
[2020-11-24] MEDS: LISINOPRIL 10 MG TAB PO SCH (11:02)
[2020-11-24] MEDS: INSULIN LANTUS (GLARGINE) 1 /0.01ml (100units/ml) SC SCH (12:02)
[2020-11-24 12:20] VITALS: BP 141/84
== END 2020-11-24 14:00 | disposition home or self-care (01) | DRG 870 ==
LOC: ER 06:19 → EDBD 06:19 → TELE 13:47 → CATH ICU 10-27 21:47 → TELE-CENTR 11-20 16:12
PROVIDERS: ADMIT Internal Medicine; ATTEND Family Medicine
PROC: 5A1955Z Respiratory Ventilation, Greater than 96 Consecutive Hours (ICD-10-PCS; principal; 2020-10-25)
PROC: 0BH17EZ Insertion of Endotracheal Airway into Trachea, Via Natural or Artificial Opening (ICD-10-PCS; 2020-10-25)
PROC: 02HV33Z Insertion of Infusion Device into Superior Vena Cava, Percutaneous Approach (ICD-10-PCS; 2020-10-31)
PROC: B548ZZA Ultrasonography of Superior Vena Cava, Guidance (ICD-10-PCS; 2020-10-31)
PROC: 30233R1 Transfusion of Nonautologous Platelets into Peripheral Vein, Percutaneous Approach (ICD-10-PCS; 2020-11-07)
DX: A41.9 Sepsis, unspecified organism (principal); E10.10 Type 1 diabetes mellitus with ketoacidosis without coma; J18.9 Pneumonia, unspecified organism; J96.01 Acute respiratory failure with hypoxia; N17.0 Acute kidney failure with tubular necrosis; N39.0 Urinary tract infection, site not specified; E44.0 Moderate protein-calorie malnutrition; D69.3 Immune thrombocytopenic purpura; Z68.41 Body mass index [BMI] 40.0-44.9, adult; E87.1 Hypo-osmolality and hyponatremia; D72.823 Leukemoid reaction; E66.01 Morbid (severe) obesity due to excess calories; D64.9 Anemia, unspecified; D69.6 Thrombocytopenia, unspecified; E10.22 Type 1 diabetes mellitus with diabetic chronic kidney disease; N18.9 Chronic kidney disease, unspecified; E87.70 Fluid overload, unspecified; Z03.818 Encounter for observation for suspected exposure to other biological agents ruled out; Z20.822 Contact with and (suspected) exposure to COVID-19; E83.42 Hypomagnesemia; E87.6 Hypokalemia; I12.9 Hypertensive chronic kidney disease with stage 1 through stage 4 chronic kidney disease, or unspecified chronic kidney disease; J45.909 Unspecified asthma, uncomplicated; Z79.899 Other long term (current) drug therapy; Z79.4 Long term (current) use of insulin; Z82.49 Family history of ischemic heart disease and other diseases of the circulatory system; Z83.3 Family history of diabetes mellitus; Z91.14 Patient's other noncompliance with medication regimen; Z91.19 Patient's noncompliance with other medical treatment and regimen; Z88.6 Allergy status to analgesic agent; Z88.1 Allergy status to other antibiotic agents; Z91.09 Other allergy status, other than to drugs and biological substances; Z88.5 Allergy status to narcotic agent
CPT/HCPCS: 36415; 36569; 36600; 70490; 71045; 71250; 74176; 76705; 80048; 80053; 80061; 80307; 81001; 81025; 82010; 82150; 82533; 82570; 82805; 82962; 83010; 83036; 83615; 83690; 83735; 83880; 83930; 83935; 84100; 84132; 84156; 84300; 84443; 84702; 85007; 85025; 85027; 85045; 85610; 85730; 86703; 86803; 86850; 86900; 86901; 87040; 87070; 87077; 87081; 87086; 87088; 87186; 87205; 87340; 87426; 92610; 93005; 93306; 93970; 94002; 94003; 94640; 97110; 97116; 97530; G0378; J0330; J0696; J1100; J1450; J1561; J1815; J1956; J2001; J2250; J2405; J2704; J3480; J3490; J7060